=== PATIENT | female | born 1955 | race Two or more races ===

== ENCOUNTER → 2018-07-02 | Day surgery (SDC) | payer OTHER ==
[2018-07-01 15:08] LABS: ANION GAP 17.6 mmol/L (8-16); BLOOD UREA NITROGEN 20 mg/dL (7-26); BUN/CREATININE RATIO 25 (6-25); CALCIUM 10.4 mg/dL (8.4-10.2); CARBON DIOXIDE 23 mmol/L (22-29); CHLORIDE 102 mmol/L (98-107); CREATININE, SERUM 0.79 mg/dL (0.57-1.11); EST GLOMERULAR FILTRATION RATE > 60 ML/MIN (60-); GLUCOSE 87 mg/dL (74-118); POTASSIUM 3.6 mmol/L (3.5-5.1); SODIUM 139 mmol/L (136-145)
[~2018-07-02] MED LIST: ACETAMINOPHEN-1 EAC3; CEFTRIAXONE SOD 1 GM VIAL ONE; CIPRO500 MG PO; DEXAMETHASONE SOD PHOS INJ 4 MG/ML VIAL ONE; FENTANYL CITRATE/PF 100MCG/2 ML INJ ONE; IOPAMIDOL 610MG/1ML 300 MG/ML VIAL IV ONE; LIDOCAINE HCL 2% LOCAL INJ 5 ML SDV VIAL INJ ONE; LISINOPRIL-HCT1 EAC1; MIDAZOLAM HCL 2 MG/2 ML VIAL ONE; ONDANSETRON HCL INJ 2 MG/ML VIAL ONE; PROPOFOL IV EMULSION 10 MG/ML 20 ML VIAL ONE; SEVOFLURANE INHAL SOLN 250 ML PEN BTL ONE; ZESTORETIC 10-1 EAC1
--- OUTSIDE RECORDS SUMMARY | 2018-07-02 05:14 | XMS REPORT ---
Author Author Denzel Holcomb Organization [employer] Address Unknown Phone Unavailable Care Team Providers Care Banquet Captain Name Role Phone Denzel Holcomb CP Unavailable Allergies, Adverse Reactions, Alerts Substance Reaction Event Type penicillin Info Not Available Drug Allergy Problems Problem Type Condition Code Onset Dates Condition Status Assessment Chronic allergic rhinitis, unspecified seasonality, unspecified trigger J30.9 Active Assessment Helicobacter pylori (H. pylori) A04.8 Active Problem Chronic allergic rhinitis, unspecified seasonality, unspecified trigger J30.9 Active Problem Abdominal aortic aneurysm without rupture I71.4 Active Problem PUD (peptic ulcer disease) K27.9 Active Assessment Essential (primary) hypertension I10 Active Assessment UGI bleed K92.2 Active Problem Essential (primary) hypertension I10 Active Assessment PUD (peptic ulcer disease) K27.9 Active Medications Medication Code System Code Instructions Start Date End Date Status Dosage Hemocyte [facility] [address]-55 324 (106 Fe) MG Orally daily Active 1 capsule Caltrate 600+D [facility] [address]-98 600-800 MG-UNIT Orally twice a day (bid) Apr 17, 2017 Oct 14, 2017 Active 1 tablet with a meal Flonase ND 0 50 MCG/DOSE Nasally Once a day Jun 26, 2017 Active 1 spray in each nostril Prevpac [facility] [address]-11 - Orally as directed Jun 26, 2017 Active as directed Claritin [facility] [address]-76 10 MG Orally Once a day Jun 26, 2017 Jul 26, 2017 Active 1 tablet Lisinopril-Hydrochlorothiazide [facility] [address]-17 10-12.5 MG Orally Once a day February 10, 2017 Active 1 tablet Vital Signs Date/Time: Jun 26, 2017 BMI 23.36 Index Weight 119.6 lbs Height 60.0 in Temperature 98.3 F Cardiac Monitoring Heart Rate 76 /min Blood Pressure Diastolic 109 mm Hg Blood Pressure Systolic 190 mm Hg Results Name Result Date Reference Range Unit Abnormality Flag COMPREHENSIVE METABOLIC PANEL ----ALBUMIN/GLOBULIN RATIO 1.1 [id number] 1.0-2.5 (calc) N ----GLOBULIN 3.6 [id number] 1.9-3.7 g/dL (calc) N ----ALKALINE PHOSPHATASE 86 [id number] 33-130 U/L N ----BILIRUBIN, TOTAL 0.3 [id number] 0.2-1.2 mg/dL N ----CHLORIDE 106 17702204 98-110 mmol/L N ----ALT 14 [id number] 6-29 U/L N ----POTASSIUM 4.5 [id number] 3.5-5.3 mmol/L N ----AST 19 [id number] 10-35 U/L N ----SODIUM 141 27890984 135-146 mmol/L N ----BUN/CREATININE RATIO NOT APPLICABLE [id number] 6-22 (calc) ----eGFR 94 [id number] > OR=60 mL/min/1.73m2 N ----CALCIUM 9.5 [id number] 8.6-10.4 mg/dL N ----CARBON DIOXIDE 27 [id number] 20-31 mmol/L N ----ALBUMIN 3.8 [id number] 3.6-5.1 g/dL N ----PROTEIN, TOTAL 7.4 [id number] 6.1-8.1 g/dL N ----GLUCOSE 89 [id number] 65-99 mg/dL N ----UREA NITROGEN (BUN) 19 [id number] 7-25 mg/dL N ----CREATININE 0.78 [id number] 0.50-0.99 mg/dL N ----eGFR NON-AFR. AZERBAIJANI 81 [id number] > OR=60 mL/min/1.73m2 N Summary Purpose [employer] Submission
--- OUTSIDE RECORDS SUMMARY | 2018-07-02 05:14 | XMS REPORT ---
Author Author Denzel Holcomb Organization [employer] Address Unknown Phone Unavailable Care Team Providers Care Scoreboard Operator Name Role Phone Denzel Holcomb CP Unavailable Allergies No Known Allergies Problems Problem Type Condition Code Onset Dates Condition Status Problem Chronic allergic rhinitis, unspecified seasonality, unspecified trigger J30.9 Active Problem Abdominal aortic aneurysm without rupture I71.4 Active Problem PUD (peptic ulcer disease) K27.9 Active Problem Essential (primary) hypertension I10 Active Assessment PUD (peptic ulcer disease) K27.9 Active Medications Medication Code System Code Instructions Start Date End Date Status Dosage Prevacid [facility] [address]-96 30 MG Orally twice a day (bid) Jun 30, 2017 Active 1 capsule Amoxicillin [facility] [address]-92 500 MG Orally every 12 hrs Jun 30, 2017 Jul 15, 2017 Active 2 tablets Prevpac [facility] [address]-44 - Orally as directed Jun 26, 2017 Inactive as directed Biaxin [facility] [address]-66 500 MG Orally every 12 hrs Jun 30, 2017 Jul 15, 2017 Active 1 tablet Results No Known Results Summary Purpose [employer] Submission
--- OUTSIDE RECORDS SUMMARY | 2018-07-02 05:14 | XMS REPORT ---
Author Author Denzel Holcomb Organization [employer] Address Unknown Phone Unavailable Care Team Providers Care Glass Frame Fitter Name Role Phone Denzel Holcomb CP Unavailable Allergies, Adverse Reactions, Alerts Substance Reaction Event Type penicillin Info Not Available Drug Allergy Problems Problem Type Condition Code Onset Dates Condition Status Assessment Encounter for general adult medical examination with abnormal findings Z00.01 Active Assessment Essential (primary) hypertension I10 Active Problem Essential (primary) hypertension I10 Active Assessment Body mass index (BMI) of 23.0 to 23.9 in adult Z68.23 Active Medications Medication Code System Code Instructions Start Date End Date Status Dosage Lisinopril-Hydrochlorothiazide [facility] [address]-62 10-12.5 MG Orally Once a day February 10, 2017 Active 1 tablet Vital Signs Date/Time: February 10, 2017 BMI 23.57 Index Weight 120.7 lbs Height 60.0 in Temperature 98.0 F Cardiac Monitoring Heart Rate 80 /min Blood Pressure Diastolic 94 mm Hg Blood Pressure Systolic 169 mm Hg Results No Known Results Summary Purpose [employer] Submission
--- OUTSIDE RECORDS SUMMARY | 2018-07-02 05:14 | XMS REPORT ---
Author Author Denzel Holcomb Organization [employer] Address Unknown Phone Unavailable Care Team Providers Care General Machinist Name Role Phone Denzel Holcomb CP Unavailable Allergies No Known Allergies Problems Problem Type Condition Code Onset Dates Condition Status Problem Essential (primary) hypertension I10 Active Problem Abdominal aortic aneurysm without rupture I71.4 Active Medications Medication Code System Code Instructions Start Date End Date Status Dosage Caltrate 600+D [facility] [address]-07 600-800 MG-UNIT Orally twice a day (bid) Apr 17, 2017 Oct 14, 2017 Active 1 tablet with a meal Results No Known Results Summary Purpose [employer] Submission
--- OUTSIDE RECORDS SUMMARY | 2018-07-02 05:14 | XMS REPORT | Continuity of Care Document ---
Author Author [facility] Interface Address Unknown Phone Unavailable Problems Problem Status Onset Date Classification Date Reported Comments Source Escherichia coli<sup>1, 2</sup> Active 06/14/2017 Problem 06/19/2017 Problem added by Discern Expert. [facility] EPIGASTRIC ABDOMINAL PIAN, ACUTE BLOOD L Active 06/14/2017 [facility] DIFFICULTY BREATHING Active 06/14/2017 [facility] Chronic allergic rhinitis, unspecified seasonality, unspecified trigger Active Diagnosis 05/29/2018 [id number] Abdominal aortic aneurysm without rupture Active Problem 05/29/2018 [id number] PUD Active Problem 05/29/2018 [id number] Essential hypertension Active Problem 05/29/2018 [id number],Jonathan Vazquez Encounter for general adult medical examination with abnormal findings Active Diagnosis 02/17/2017 [id number] Body mass index of 23.0 to 23.9 in adult Active Diagnosis 02/17/2017 [id number] Acute left-sided low back pain with left-sided sciatica Active Problem 05/29/2018 [id number] Hypertensive urgency Active Problem 05/29/2018 [id number] Kidney stone Active Diagnosis 05/29/2018 [id number] Hydronephrosis concurrent with and due to calculi of kidney and ureter Active Diagnosis 05/29/2018 [id number] Helicobacter pylori Active Diagnosis 07/08/2017 [id number] UGI bleed Active Diagnosis 07/08/2017 [id number] Carpal tunnel syndrome, left Active Problem 10/14/2016 Jonathan Vazquez Body mass index 22.0-22.9, adult Active Diagnosis 10/14/2016 Jonathan Vazquez Cervicalgia Active Diagnosis 10/14/2016 Jonathan Vazquez Hypertension Resolved Problem 06/19/2017 [facility] Peptic ulcer Resolved Problem 06/19/2017 [facility] EPIGASTRIC PAIN Active [facility] ACUTE POSTHEMORRHAGIC ANEMIA Active [facility] Medications Medication Details Route Status Patient Instructions Ordering Provider Order Date Source Lisinopril-Hydrochlorothiazide 1 tablet Orally Active 20-25 MG Orally Once a day Zhang 01/13/2018 [id number] Kcinntc-Agfdtv-Wzzfs Pertussis as directed Intramuscular Active 5-2.5-18.5 LF-MCG/0.5 Intramuscular as directed Zhang 01/13/2018 [id number] Tylenol/Codeine #3 1 tablet as needed Orally Active 300-30 MG Orally every 6 hrs Zhang 12/30/2017 [id number] Cipro 1 tablet Orally Active 500 mg Orally Once a day Zhang 12/30/2017 [id number] Prevacid 1 capsule Orally Active 30 MG Orally twice a day (bid) Zhang 06/30/2017 [id number] Amoxicillin 2 tablets Orally Active 500 MG Orally every 12 hrs Zhang 06/30/2017 [id number] Biaxin 1 tablet Orally Active 500 MG Orally every 12 hrs Zhang 06/30/2017 [id number] Prevacid 1 capsule Orally Active 30 MG Orally twice a day (bid) Zhang 06/30/2017 [id number]..77491 Prevpac as directed Orally Active - Orally as directed Zhang 06/26/2017 [id number] Flonase 1 spray in each nostril Nasally Active 50 MCG/DOSE Nasally Once a day Zhang 06/26/2017 [id number] Flonase 1 spray in each nostril Nasally Active 50 MCG/DOSE Nasally Once a day Zhang 06/26/2017 [id number] Claritin 1 tablet Orally Active 10 MG Orally Once a day Zhang 06/26/2017 [id number] Ciprofloxacin 500 MG Oral Tablet [Cipro] 500 mg=1 tab, PO, Q12H, X 10 day, # 20 tab, 0 Refill(s), Pharmacy: [place] [facility] [id number] Active 06/16/2017 [facility] Copper Sulfate 0.8 MG / Ferrous fumarate 324 MG / Folic Acid 1 MG / Magnesium Sulfate 6.9 MG / manganese sulfate 1.3 MG / Niacinamide 30 MG / Pantothenic Acid 10 MG / pyridoxine 5 MG / Riboflavin 6 MG / Sodium Ascorbate 200 MG / Thiamine 10 MG / Vitamin B 1 cap, PO, Daily, # 30 cap, 3 Refill(s), Pharmacy: [place] [id number] Active 06/16/2017 [facility] influenza virus vaccine, inactivated 0.5 mL, Route: IM, Drug Form: SUSP, Daily, Start date: 06/15/17 16:00:00 CDT, Duration: 1 doses or times, Stop date: 06/15/17 16:00:00 CDTNotes: (Same as: Fluzone Quadrivalent, Fluarix Quadrivalent) For 3 years of age and older (0.5 mL IM) Shake well before use Inactive 06/15/2017 [facility] Sucralfate 1000 MG Oral Tablet [Carafate] 1 gm=1 tab, PO, QID-Before Meals, # 120 tab, 0 Refill(s), Pharmacy: [place] [id number] Active 06/15/2017 [facility] pantoprazole 40 MG Enteric Coated Tablet [Protonix] 40 mg=1 tab, PO, BID, # 120 tab, 1 Refill(s), Pharmacy: [place] [id number] Active 06/15/2017 [facility] Omnipaque 300 50 ml, Route: PO, Drug Form: SOLN, Dosing Weight 55.483, kg, ONCE, Start date: 06/15/17 11:41:00 CDT, Stop date: 06/15/17 11:41:00 CDTNotes: (Same as:Omnipaque 300). WASTE: F/P - Black; E - sougou Bin Inactive 06/15/2017 [facility] Levaquin 500 mg, 2 tab, Route: PO, Drug form: TAB, [id number], Dosing Weight 55.483, kg, Start date: 06/15/17 11:00:00 CDT, Duration: 3 day, Stop date: 06/17/17 11:00:00 CDT, ABX Indication: Urinary Tract InfectionNotes: Do not give w/antacids, dairy pdt & minerals Take 1 hr before or 2 hr after dairy pdt (Same as:Levaquin) No Longer Active 06/15/2017 [facility] Sodium Chloride 0.9% IV 1000 mL 1,000 mL, Rate: 25 ml/hr, Infuse over: 40 hr, Route: IV, Dosing Weight 55.483 kg, Total Volume: 1,000, Start date: 06/15/17 10:04:00 CDT, Duration: 30 day, Stop date: 07/15/17 10:03:00 CDT Inactive 06/15/2017 [facility] influenza virus vaccine, inactivated 0.5 mL, Route: IM, Drug Form: SUSP, Daily, Start date: 06/15/17 9:00:00 CDT, Duration: 1 doses or times, Stop date: 06/15/17 9:00:00 CDTNotes: (Same as: Fluzone Quadrivalent, Fluarix Quadrivalent) For 3 years of age and older (0.5 mL IM) Shake well before use Inactive 06/15/2017 [facility] Saline Flush 0.9% 10 ml, Route: IVP, Drug Form: INJ, Dosing Weight 56.818, kg, PRN, PRN Line Flush, Start date: 06/14/17 20:58:00 CDT, Duration: 30 day, Stop date: 07/14/17 20:57:00 CDTNotes: (Same as: BD Posiflush) No Longer Active 06/15/2017 [facility] sodium chloride 0.9% 1000 ml INJ 1,000 mL 1,000 mL, Rate: 125 ml/hr, Infuse over: 8 hr, Route: IV, Dosing Weight 56.818 kg, Total Volume: 1,000, Start date: 06/14/17 20:58:00 CDT, Duration: 30 day, Stop date: 07/14/17 20:57:00 CDT No Longer Active 06/15/2017 [facility] Morphine 2 mg, 1 mL, Route: IVP, Drug form: SOLN, Q4H, Dosing Weight 56.818, kg, PRN Pain Score 7-10, Start date: 06/14/17 20:58:00 CDT, Duration: 30 day, Stop date: 07/14/17 20:57:00 CDT No Longer Active 06/15/2017 [facility] Ondansetron 4 mg, 2 mL, Route: IVP, Drug form: INJ, Q6H, Dosing Weight 56.818, kg, PRN Nausea & Vomiting, Start date: 06/14/17 20:58:00 CDT, Duration: 30 day, Stop date: 07/14/17 20:57:00 CDTNotes: (Same as: Zofran) MEDICATION WASTE Product Size: 4 mg Product Wasted: ___ mg No Longer Active 06/15/2017 [facility] Hydralazine 10 mg, 0.5 mL, Route: IVP, Drug form: INJ, Q4H, Dosing Weight 56.818, kg, PRN Elevated BP, if SBP>150, Start date: 06/14/17 19:16:00 CDT, Duration: 30 day, Stop date: 07/14/17 19:15:00 CDTNotes: (Same as: Apresoline) Push over 5 minutes No Longer Active 06/15/2017 [facility] Benadryl 25 mg, 0.5 mL, Route: IVP, Drug form: INJ, TID, Dosing Weight 56.818, kg, PRN as needed for itching, Start date: 06/14/17 19:16:00 CDT, Duration: 30 day, Stop date: 07/14/17 19:15:00 CDTNotes: (Same as: Benadryl) No Longer Active 06/15/2017 [facility] Simethicone 160 mg, 2 tab, Route: CHEW, Drug form: CHEWTAB, TID, Dosing Weight 56.818, kg, PRN as needed for gas, Start date: 06/14/17 19:16:00 CDT, Duration: 30 day, Stop date: 07/14/17 19:15:00 CDTNotes: (Same as: Mylicon) No Longer Active 06/15/2017 [facility] Tums 1,500 mg, 3 tab, Route: CHEW, Drug form: CHEWTAB, TID, Dosing Weight 56.818, kg, PRN as needed for dyspepsia, Start date: 06/14/17 19:16:00 CDT, Duration: 30 day, Stop date: 07/14/17 19:15:00 CDTNotes: (Same As: Tums) Calcium Carbonate 500 wq=851 mg elemental calcium Dose= mg calcium carbonate ( mg elemental calcium) No Longer Active 06/15/2017 [facility] Morphine 2 mg, 1 mL, Route: IVP, Drug form: SOLN, Q4H, Dosing Weight 56.818, kg, PRN Pain Score 7-10, Start date: 06/14/17 19:16:00 CDT, Duration: 30 day, Stop date: 07/14/17 19:15:00 CDT Inactive 06/15/2017 [facility] Ondansetron 4 mg, 2 mL, Route: IVP, Drug form: INJ, Q6H, Dosing Weight 56.818, kg, PRN Nausea & Vomiting, Start date: 06/14/17 19:16:00 CDT, Duration: 30 day, Stop date: 07/14/17 19:15:00 CDTNotes: (Same as: Luis Antonio) MEDICATION WASTE Product Size: 4 mg Product Wasted: ___ mg Inactive 06/15/2017 [facility] Docusate 100 mg, 1 cap, Route: PO, Drug form: CAP, BID, Dosing Weight 56.818, kg, PRN as needed for constipation, Start date: 06/14/17 19:16:00 CDT, Duration: 30 day, Stop date: 07/14/17 19:15:00 CDTNotes: (Same as: Colace) (Do Not Crush) No Longer Active 06/15/2017 [facility] Acetaminophen 650 mg, 2 tab, Route: PO, Drug form: TAB, Q4H, Dosing Weight 56.818, kg, PRN Pain 1-3/Temp > 100.4 F, Start date: 06/14/17 19:16:00 CDT, Duration: 30 day, Stop date: 07/14/17 19:15:00 CDTNotes: Do not exceed 4 gm/day. (Same as: Tylenol) No Longer Active 06/15/2017 [facility] Acetaminophen 325 MG / Hydrocodone Bitartrate 5 MG Oral Tablet 1 tab, Route: PO, Drug Form: TAB, Dosing Weight 56.818, kg, Q4H, PRN Pain Score 4-6, Start date: 06/14/17 19:16:00 CDT, Duration: 30 day, Stop date: 07/14/17 19:15:00 CDTNotes: (Same as: [place] 325/5) Do not exceed 4gm/day of acetaminophen. No Longer Active 06/15/2017 [facility] Saline Flush 0.9% 10 ml, Route: IVP, Drug Form: INJ, Dosing Weight 56.818, kg, PRN, PRN Line Flush, Start date: 06/14/17 19:15:00 CDT, Duration: 30 day, Stop date: 07/14/17 19:14:00 CDTNotes: (Same as: BD Posiflush) No Longer Active 06/15/2017 [facility] sodium chloride 0.9% 1000 ml INJ 1,000 mL 1,000 mL, Rate: 75 ml/hr, Infuse over: 13.3 hr, Route: IV, Dosing Weight 56.818 kg, Total Volume: 1,000, Start date: 06/14/17 19:15:00 CDT, Duration: 30 day, Stop date: 07/14/17 19:14:00 CDT Inactive 06/15/2017 [facility] Ondansetron 4 mg, 2 mL, Route: IVP, Drug form: INJ, Q4H, Dosing Weight 56.818, kg, PRN Nausea & Vomiting, Start date: 06/14/17 19:15:00 CDT, Duration: 30 day, Stop date: 07/14/17 19:14:00 CDTNotes: (Same as: Luis Antonio) MEDICATION WASTE Product Size: 4 mg Product Wasted: ___ mg Inactive 06/15/2017 [facility] UNKNOWN BP UNKNOWN BP, 30 mg=, PO, Daily, PRN Hypertension, Refill(s) 0 No Longer Active 06/14/2017 [facility] Esomeprazole 20 MG Enteric Coated Capsule [Nexium] 20 mg=1 cap, PO, Daily, 0 Refill(s) No Longer Active 06/14/2017 [facility] pantoprazole 80 mg + sodium chloride 0.9% 100 mL INJ (for IV set) 100 mL 100 mL, Rate: 10 ml/hr, Infuse over: 10 hr, Route: IV, Dosing Weight 56.818 kg, Total Volume: 100, Start date: 06/14/17 17:43:00 CDT, Duration: 72 hr, Stop date: 06/23/17 17:42:00 CDTNotes: infuse at 8 mg/hr (10 ml/hr) for 72 hrs for GI bleed No Longer Active 06/14/2017 [facility] Sodium Chloride 0.9% IV 250 mL + esomeprazole 80 mg 250 mL, Rate: 25 ml/hr, Infuse over: 10 hr, Route: IV, Dosing Weight 56.818 kg, Total Volume: 250, Start date: 06/14/17 17:35:00 CDT, Duration: 72 hr, Stop date: 06/17/17 17:34:00 CDT Inactive 06/14/2017 [facility] sodium chloride 0.9% INJ 250 mL 250 mL, Rate: Armature Winder for use with blood product administration., Dosing Weight 56.818, kg, Route: IV, Total Volume: 250, Priority: Routine, Start Date: 06/14/17 17:26:00 CDT, Duration: 1 day, Stop date: 06/15/17 17:25:00 CDT, Replace Every: 24 hr No Longer Active 06/14/2017 [facility] sodium chloride 0.9% INJ 250 mL 250 mL, Rate: Armature Winder for use with blood product administration., Dosing Weight 56.818, kg, Route: IV, Total Volume: 250, Priority: Routine, Start Date: 06/14/17 16:19:00 CDT, Duration: 1 day, Stop date: 06/15/17 16:18:00 CDT, Replace Every: 24 hr No Longer Active 06/14/2017 [facility] Saline Flush 0.9% 10 mL, Route: IVP, Drug Form: INJ, Dosing Weight 56.818, kg, PRN, PRN Line Flush, Start date: 06/14/17 16:19:00 CDT, Duration: 30 day, Stop date: 07/14/17 16:18:00 CDTNotes: preservative free. No Longer Active 06/14/2017 [facility] Caltrate 600+D 1 tablet with a meal Orally Active 600-800 MG- UNIT Orally twice a day (bid) Zhang 04/17/2017 [id number] Lisinopril-Hydrochlorothiazide 1 tablet Orally Active 10-12.5 MG Orally Once a day Zhang 02/10/2017 [id number] Lisinopril-Hydrochlorothiazide 1 tablet Orally Active 10-12.5 MG Orally Once a day Zhang 02/10/2017 [id number] Meloxicam 1 tablet Orally Active 7.5 MG Orally Once a day [facility] 10/08/2016 [facility] Losartan Potassium-HCTZ 1 tablet Orally Active 100-12.5 MG Orally Once a day [facility] 10/08/2016 [facility] Hemocyte 1 capsule Orally Active 324 (106 Fe) MG Orally daily Zhang [id number] Hemocyte 1 capsule Orally Active 324 (106 Fe) MG Orally daily Zhang [id number] Allergies, Adverse Reactions, Alerts Substance Category Reaction Severity Reaction type Status Date Reported Comments Source Peniciline Adverse Reaction rash Adverse Reaction Active 10/08/2016 Jonathan Vazquez penicillin Adverse Reaction Info Not Available Adverse Reaction Active 05/14/2018 [id number] Immunizations Immunization Date Given Site Status Last Updated Comments Source influenza virus vaccine, inactivated 06/15/2017 Left deltoid completed [facility] Results Order Name Results Value Reference Range Date Interpretation Comments Source HEMATOLOGY MCHC 33.2 g/dL 32.0 - 36.0 06/16/2017 [facility] HEMATOLOGY MPV 7.3 fL 7.4 - 10.4 06/16/2017 [facility] HEMATOLOGY MCV 75.9 fL 80.0 - 98.0 06/16/2017 [facility] HEMATOLOGY Hgb 8.6 g/dL 12.0 - 16.0 06/16/2017 [facility] HEMATOLOGY RBC 3.43 M/CMM 4.20 - 5.40 06/16/2017 [facility] HEMATOLOGY Platelet 219 K/CMM 133 - 450 06/16/2017 [facility] HEMATOLOGY RDW 20.9 % 11.5 - 14.5 06/16/2017 [facility] Hct 26.0 % 36.0 - 48.0 06/16/2017 [facility] MCH 25.2 pg 27.0 - 31.0 06/16/2017 [facility] WBC 7.4 K/CMM 3.7 - 10.4 06/16/2017 [facility] BLOOD BANK RESULTS RBC product Product available 1 (06/16/17 7:37 AM) 06/16/2017 Result Comment: 06/16/2017 07:57 [id number] notified FLY philip blood is ready for filler picker [facility] CHEM PANEL BUN 20 mg/dL 7 - 22 06/16/2017 [facility] CHEM PANEL Sodium Lvl 144 meq/L 135 - 145 06/16/2017 [facility] CHEM PANEL Creatinine Lvl 0.63 mg/dL 0.50 - 1.40 06/16/2017 [facility] CHEM PANEL Glucose Lvl 87 mg/dL 70 - 99 06/16/2017 [facility] CHEM PANEL AGAP 9.8 meq/L 10.0 - 20.0 06/16/2017 [facility] CHEM PANEL CO2 26 meq/L 24 - 32 06/16/2017 [facility] CHEM PANEL Calcium Lvl 7.8 mg/dL 8.5 - 10.5 06/16/2017 [facility] CHEM PANEL Chloride Lvl 112 meq/L 95 - 109 06/16/2017 [facility] CHEM PANEL Potassium Lvl 3.8 meq/L 3.5 - 5.1 06/16/2017 [facility] CHEM PANEL eGFR 96 mL/min/1.73m2 06/16/2017 Result Comment: The eGFR is calculated using the CKD-EPI formula. In most young, healthy individuals the eGFR will be >90 mL/min/1.73m2. The eGFR declines with age. An eGFR of 60-89 may be normal in some populations, particularly the elderly, for whom the CKD-EPI formula has not been extensively validated. Use of the eGFR is not recommended in the following populations: Individuals with unstable creatinine concentrations, including patients and those with serious co-morbid conditions. Patients with extremes in muscle mass or diet. The data above are obtained from the National Kidney Disease Education Program (NKDEP) which additionally recommends that when the eGFR is used in patients with extremes of body mass index for purposes of drug dosing, the eGFR should be multiplied by the estimated BMI. [facility] Platelet 210 K/CMM 133 - 450 06/16/2017 [facility] MPV 7.6 fL 7.4 - 10.4 06/16/2017 [facility] MCHC 32.4 g/dL 32.0 - 36.0 06/16/2017 [facility] RDW 21.2 % 11.5 - 14.5 06/16/2017 [facility] MCH 23.9 pg 27.0 - 31.0 06/16/2017 [facility] MCV 73.9 fL 80.0 - 98.0 06/16/2017 [facility] WBC 7.3 K/CMM 3.7 - 10.4 06/16/2017 [facility] RBC 3.04 M/CMM 4.20 - 5.40 06/16/2017 [facility] Hct 22.4 % 36.0 - 48.0 06/16/2017 [facility] Hgb 7.3 g/dL 12.0 - 16.0 06/16/2017 [facility] Eosinophils 3.3 % 0.0 - 4.0 06/16/2017 [facility] Basophils 0.6 % 0.0 - 1.0 06/16/2017 [facility] Segs-Bands # 3.9 K/CMM 1.5 - 8.1 06/16/2017 [facility] Lymphocytes # 2.5 K/CMM 1.0 - 5.5 06/16/2017 [facility] Monocytes # 0.6 K/CMM 0.0 - 0.8 06/16/2017 [facility] Microcyte 1+ *ABN* (06/16/17 5:50 AM) None Seen 06/16/2017 [facility] Eosinophils # 0.2 K/CMM 0.0 - 0.5 06/16/2017 [facility] Segs 54.0 % 45.0 - 75.0 06/16/2017 [facility] Lymphocytes 34.2 % 20.0 - 40.0 06/16/2017 [facility] Monocytes 7.9 % 2.0 - 12.0 06/16/2017 [facility] Hct 24.3 % 36.0 - 48.0 06/15/2017 [facility] Hgb 7.9 g/dL 12.0 - 16.0 06/15/2017 [facility] URINE AND STOOL Occult Bld Stl Positive *ABN* (06/15/17 10:01 AM) Negative 06/15/2017 [facility] Abdomen/Pelvis wo IV contrast CT Abdomen/Pelvis wo IV contrast CT Patient Name: VADIM ALVES : 1955; Age: 61 years Female MR: [id number] Study: Abdomen/Pelvis wo IV contrast CT 06/15/2017 10:46 AM CDT CLINICAL INDICATION: 25cc omni oral; dlp:272 mGycm - abd pain; Abdominal pain, acute COMPARISON: None TECHNIQUE: Multidetector CT imaging of the abdomen and pelvis was performed from the diaphragm through the symphysis with multiplanar reformations WITHOUT IV contrast. Coronal and sagittal reconstructions were generated and reviewed. FINDINGS: Lower thorax: Clear. Hepatobiliary: No focal hepatic lesion. Unremarkable gallbladder. Pancreas: No focal mass or ductal dilatation. Spleen: No splenomegaly. Adrenals: No nodules. Kidneys: Large staghorn calculus (2.3 cm) centered within the left renal pelvis results in mild left hydronephrosis. Several additional nonobstructive calculi within both kidneys. The proximal left ureter is dilated with surrounding inflammatory changes. No evidence of a distal left ureteral stone. Pelvic organs: Absent uterus. Nondistended bladder. Peritoneum/Retroperitoneum: No free air or free fluid. Lymph nodes: No lymphadenopathy. Vessels: Unremarkable. GI: No significant bowel thickening or dilatation. The appendix appears unremarkable. Bones and soft tissues: Mild degenerative changes of the lumbar spine. IMPRESSION: Large staghorn calculus within the left renal pelvis results in mild left hydronephrosis. Dilatation of the proximal left ureter with surrounding inflammatory changes suggestive of a concurrent urinary tract infection. No evidence of an obstructive ureteral stone. Several additional nonobstructive calculi within both kidneys. SL: [id number] 06/15/2017 - - Read by: Rick Dimas MD Dictated Date/time: 06/15/17 16:07 Electronically Signed by: Rick Dimas MD 06/15/17 16:20 FINAL REPORT [facility] CHEM PANEL Calcium Lvl 8.0 mg/dL 8.5 - 10.5 06/15/2017 [facility] CHEM PANEL Total Protein 5.6 g/dL 6.4 - 8.4 06/15/2017 [facility] CHEM PANEL B/C Ratio 55 6 - 25 06/15/2017 [facility] CHEM PANEL CO2 22 meq/L 24 - 32 06/15/2017 [facility] CHEM PANEL AGAP 11.6 meq/L 10.0 - 20.0 06/15/2017 [facility] CHEM PANEL Albumin Lvl 2.5 g/dL 3.5 - 5.0 06/15/2017 [facility] CHEM PANEL Creatinine Lvl 0.58 mg/dL 0.50 - 1.40 06/15/2017 [facility] CHEM PANEL Sodium Lvl 145 meq/L 135 - 145 06/15/2017 [facility] CHEM PANEL Potassium Lvl 3.6 meq/L 3.5 - 5.1 06/15/2017 [facility] CHEM PANEL Chloride Lvl 115 meq/L 95 - 109 06/15/2017 [facility] CHEM PANEL Alk Phos 65 unit/L 39 - 136 06/15/2017 [facility] CHEM PANEL Bili Total 0.7 mg/dL 0.2 - 1.3 06/15/2017 [facility] CHEM PANEL Globulin 3.1 g/dL 2.7 - 4.2 06/15/2017 [facility] CHEM PANEL A/G Ratio 0.8 0.7 - 1.6 06/15/2017 [facility] CHEM PANEL ALT 16 unit/L 0 - 65 06/15/2017 [facility] CHEM PANEL AST 16 unit/L 0 - 37 06/15/2017 [facility] CHEM PANEL eGFR 99 mL/min/1.73m2 06/15/2017 Result Comment: The eGFR is calculated using the CKD-EPI formula. In most young, healthy individuals the eGFR will be >90 mL/min/1.73m2. The eGFR declines with age. An eGFR of 60-89 may be normal in some populations, particularly the elderly, for whom the CKD-EPI formula has not been extensively validated. Use of the eGFR is not recommended in the following populations: Individuals with unstable creatinine concentrations, including patients and those with serious co-morbid conditions. Patients with extremes in muscle mass or diet. The data above are obtained from the National Kidney Disease Education Program (NKDEP) which additionally recommends that when the eGFR is used in patients with extremes of body mass index for purposes of drug dosing, the eGFR should be multiplied by the estimated BMI. [facility] CHEM PANEL Glucose Lvl 90 mg/dL 70 - 99 06/15/2017 [facility] CHEM PANEL BUN 32 mg/dL 7 - 22 06/15/2017 [facility] CHEM PANEL Magnesium Lvl 2.0 mg/dL 1.8 - 2.4 06/15/2017 [facility] CHEM PANEL Phosphorus 2.5 mg/dL 2.5 - 4.5 06/15/2017 [facility] Microcyte 1+ *ABN* (06/15/17 6:47 AM) None Seen 06/15/2017 [facility] Segs-Bands # 3.9 K/CMM 1.5 - 8.1 06/15/2017 [facility] Lymphocytes # 2.6 K/CMM 1.0 - 5.5 06/15/2017 [facility] HEMATOLOGY Monocytes 7.6 % 2.0 - 12.0 06/15/2017 [facility] HEMATOLOGY Basophils 0.5 % 0.0 - 1.0 06/15/2017 [facility] HEMATOLOGY Eosinophils 1.8 % 0.0 - 4.0 06/15/2017 [facility] Lymphocytes 35.9 % 20.0 - 40.0 06/15/2017 [facility] Eosinophils # 0.1 K/CMM 0.0 - 0.5 06/15/2017 [facility] Monocytes # 0.5 K/CMM 0.0 - 0.8 06/15/2017 [facility] HEMATOLOGY Segs 54.2 % 45.0 - 75.0 06/15/2017 [facility] HEMATOLOGY MPV 7.6 fL 7.4 - 10.4 06/15/2017 [facility] HEMATOLOGY RDW 20.8 % 11.5 - 14.5 06/15/2017 [facility] HEMATOLOGY MCHC 32.9 g/dL 32.0 - 36.0 06/15/2017 [facility] HEMATOLOGY MCH 24.4 pg 27.0 - 31.0 06/15/2017 [facility] HEMATOLOGY MCV 74.3 fL 80.0 - 98.0 06/15/2017 [facility] HEMATOLOGY Platelet 188 K/CMM 133 - 450 06/15/2017 [facility] HEMATOLOGY RBC 3.20 M/CMM 4.20 - 5.40 06/15/2017 [facility] HEMATOLOGY WBC 7.2 K/CMM 3.7 - 10.4 06/15/2017 [facility] Sq Epi None Seen 06/15/2017 [facility] Leuk Est Large *ABN* (06/14/17 11:13 PM) Negative 06/15/2017 [facility] Hyal Cast 1 /LPF 0 - 2 06/15/2017 [facility] RBC 5 /HPF 0 - 2 06/15/2017 [facility] WBC null 0 - 5 06/15/2017 [facility] Bacteria Many /HPF None Seen /HPF 06/15/2017 [facility] UA Urobilinogen <=1.0 mg/dL 0.1 - 1.0 06/15/2017 [facility] UA Color Ltyellow 06/15/2017 [facility]A Bili Negative *NA* (06/14/17 11:13 PM) Negative 06/15/2017 [facility] UA Nitrite Negative (06/14/17 11:13 PM) Negative 06/15/2017 [facility] UA Blood Negative (06/14/17 11:13 PM) Negative 06/15/2017 [facility] STO[facility] UA Turbidity Slight *ABN* (06/14/17 11:13 PM) Clear 06/15/2017 [facility]INE [facility] STOOL UA Ketones Negative mg/dL Negative mg/dL 06/15/2017 [facility]INE [facility] STOOL UA Glucose Negative mg/dL Negative mg/dL 06/15/2017 [facility] URINE AND STOOL UA Protein Negative mg/dL Negative mg/dL 06/15/2017 [facility] URINE AND STOOL UA pH 6.0 5.0 - 8.0 06/15/2017 [facility] URINE AND STOOL UA Spec Grav 1.013 <=1.030 06/15/2017 [facility] BLOOD BANK RESULTS RBC product Product available 2 (06/14/17 5:26 PM) 06/14/2017 Result Comment: 06/14/2017 18:01 [id number] Called to Parul Nicholas at 06/14/2017 18:01 by Kan Villegas. [facility] BLOOD BANK RESULTS Antibody Scrn Negative (06/14/17 4:49 PM) 06/14/2017 [facility] BLOOD BANK RESULTS ABO/Rh O POS 06/14/2017 [facility] CARDIAC ENZYMES Troponin-I null 0.00 - 0.40 06/14/2017 [facility] CHEM PANEL A/G Ratio 0.8 0.7 - 1.6 06/14/2017 [facility] CHEM PANEL B/C Ratio 54 6 - 25 06/14/2017 [facility] CHEM PANEL Globulin 3.6 g/dL 2.7 - 4.2 06/14/2017 [facility] CHEM PANEL AGAP 12.1 meq/L 10.0 - 20.0 06/14/2017 [facility] CHEM PANEL eGFR 96 mL/min/1.73m2 06/14/2017 Result Comment: The eGFR is calculated using the CKD-EPI formula. In most young, healthy individuals the eGFR will be >90 mL/min/1.73m2. The eGFR declines with age. An eGFR of 60-89 may be normal in some populations, particularly the elderly, for whom the CKD-EPI formula has not been extensively validated. Use of the eGFR is not recommended in the following populations: Individuals with unstable creatinine concentrations, including patients and those with serious co-morbid conditions. Patients with extremes in muscle mass or diet. The data above are obtained from the National Kidney Disease Education Program (NKDEP) which additionally recommends that when the eGFR is used in patients with extremes of body mass index for purposes of drug dosing, the eGFR should be multiplied by the estimated BMI. [facility] CHEM PANEL Bili Total 0.2 mg/dL 0.2 - 1.3 06/14/2017 [facility] CHEM PANEL Alk Phos 80 unit/L 39 - 136 06/14/2017 [facility] CHEM PANEL Albumin Lvl 2.9 g/dL 3.5 - 5.0 06/14/2017 [facility] CHEM PANEL Calcium Lvl 8.3 mg/dL 8.5 - 10.5 06/14/2017 [facility] CHEM PANEL ALT 23 unit/L 0 - 65 06/14/2017 [facility] CHEM PANEL Total Protein 6.5 g/dL 6.4 - 8.4 06/14/2017 [facility] CHEM PANEL AST 19 unit/L 0 - 37 06/14/2017 [facility] CHEM PANEL Chloride Lvl 111 meq/L 95 - 109 06/14/2017 [facility] CHEM PANEL Sodium Lvl 142 meq/L 135 - 145 06/14/2017 [facility] CHEM PANEL CO2 23 meq/L 24 - 32 06/14/2017 [facility] CHEM PANEL Potassium Lvl 4.1 meq/L 3.5 - 5.1 06/14/2017 [facility] CHEM PANEL BUN 34 mg/dL 7 - 22 06/14/2017 [facility] CHEM PANEL Glucose Lvl 102 mg/dL 70 - 99 06/14/2017 [facility] CHEM PANEL Creatinine Lvl 0.63 mg/dL 0.50 - 1.40 06/14/2017 [facility] HEMATOLOGY Plt Morph Normal (06/14/17 4:49 PM) 06/14/2017 [facility] HEMATOLOGY Segs 69.6 % 45.0 - 75.0 06/14/2017 [facility] HEMATOLOGY Microcyte 2+ *ABN* (06/14/17 4:49 PM) None Seen 06/14/2017 [facility] HEMATOLOGY Basophils # 0.1 K/CMM 0.0 - 0.2 06/14/2017 [facility] HEMATOLOGY Segs-Bands # 6.1 K/CMM 1.5 - 8.1 06/14/2017 [facility] HEMATOLOGY Monocytes # 0.5 K/CMM 0.0 - 0.8 06/14/2017 [facility] HEMATOLOGY Lymphocytes # 2.1 K/CMM 1.0 - 5.5 06/14/2017 [facility] HEMATOLOGY Basophils 0.7 % 0.0 - 1.0 06/14/2017 [facility] HEMATOLOGY Eosinophils 0.5 % 0.0 - 4.0 06/14/2017 [facility] HEMATOLOGY Monocytes 5.5 % 2.0 - 12.0 06/14/2017 [facility] HEMATOLOGY Lymphocytes 23.7 % 20.0 - 40.0 06/14/2017 [facility] HEMATOLOGY PT 12.8 s 12.0 - 14.7 06/14/2017 [facility] HEMATOLOGY INR 0.94 0.85 - 1.17 06/14/2017 [facility] HEMATOLOGY PTT 26.1 s 22.9 - 35.8 06/14/2017 [facility] Vital Signs Vital Sign Value Date Comments Source Weight 123.3 05/14/2018 2.16.840.1.140071.4.391.11.05678 Height 60 05/14/2018 2.16.840.1.808929.4.391.11.35885 Temperature Oral (F) 97.9 F 05/14/2018 2.16.840.1.822775.4.391.11.38509 Heart Rate 75 05/14/2018 2.16.840.1.500911.4.391.11.55156 Diastolic (mm Hg) 75 05/14/2018 2.16.840.1.054601.4.391.11.63643 Systolic (mm Hg) 131 05/14/2018 2.16.840.1.733647.4.391.11.58797 Weight 123.6 01/13/2018 2.16.840.1.306838.4.391.11.55560 Height 60.0 01/13/2018 2.16.840.1.410280.4.391.11.20955 Temperature Oral (F) 98.4 F 01/13/2018 2.16.840.1.101383.4.391.11.60850 Heart Rate 73 01/13/2018 2.16.840.1.027843.4.391.11.74343 Diastolic (mm Hg) 80 01/13/2018 2.16.840.1.985731.4.391.11.77705 Systolic (mm Hg) 145 01/13/2018 2.16.840.1.346973.4.391.11.02294 Weight 123.8 12/30/2017 2.16.840.1.547587.4.391.11.00447 Height 60.0 12/30/2017 2.16.840.1.813152.4.391.11.51529 Temperature Oral (F) 98.4 F 12/30/2017 2.16.840.1.297473.4.391.11.78978 Heart Rate 74 12/30/2017 2.16.840.1.229875.4.391.11.76608 Diastolic (mm Hg) 100 12/30/2017 2.16.840.1.734396.4.391.11.75906 Systolic (mm Hg) 190 12/30/2017 2.16.840.1.573157.4.391.11.86990 Weight 119.6 06/26/2017 2.16.840.1.214704.4.391.11.90139 Height 60.0 06/26/2017 2.16.840.1.603993.4.391.11.89340 Temperature Oral (F) 98.3 F 06/26/2017 2.16.840.1.580370.4.391.11.97961 Heart Rate 76 06/26/2017 2.16.840.1.737885.4.391.11.16099 Diastolic (mm Hg) 109 06/26/2017 2.16.840.1.615483.4.391.11.58661 Systolic (mm Hg) 190 06/26/2017 2.16.840.1.864691.4.391.11.31284 Systolic (mm Hg) 147 06/16/2017 [facility] Diastolic (mm Hg) 82 06/16/2017 [facility] Temperature Oral (F) 98.4 F 06/16/2017 [facility] Heart Rate 83 06/16/2017 [facility] Respitory Rate 16 06/16/2017 [facility] Systolic (mm Hg) 157 06/16/2017 [facility] Diastolic (mm Hg) 87 06/16/2017 [facility] Respitory Rate 18 06/16/2017 [facility] Temperature Oral (F) 97.8 F 06/16/2017 [facility] Heart Rate 78 06/16/2017 [facility] Heart Rate 76 06/16/2017 [facility] Temperature Oral (F) 98.1 F 06/16/2017 [facility] Respitory Rate 18 06/16/2017 [facility] Systolic (mm Hg) 134 06/16/2017 [facility] Diastolic (mm Hg) 78 06/16/2017 [facility] Height 157.48 cm 06/15/2017 [facility] Weight 55.483 06/15/2017 [facility] BMI Calculated 22.37 06/15/2017 [facility] Weight 56.818 06/14/2017 [facility] BMI Calculated 22.91 06/14/2017 [facility] Height 157.48 cm 06/14/2017 [facility] Weight 120.7 02/10/2017 2.16.840.1.611720.4.391.11.39551 Height 60.0 02/10/2017 2.16.840.1.889861.4.391.11.61424 Temperature Oral (F) 98.0 F 02/10/2017 2.16.840.1.714917.4.391.11.19497 Heart Rate 80 02/10/2017 2.16.840.1.805548.4.391.11.38449 Diastolic (mm Hg) 94 02/10/2017 2.16.840.1.632967.4.391.11.81509 Systolic (mm Hg) 169 02/10/2017 2.16.840.1.183764.4.391.11.18383 Weight 118.2 10/08/2016 Jonathan Vazquez Height 60 10/08/2016 Jonathan Vazquez Heart Rate 75 10/08/2016 Jonathan Vazquez Diastolic (mm Hg) 91 10/08/2016 Jonathan Vazquez Systolic (mm Hg) 169 10/08/2016 Jonathan Vazquez Encounters Location Location Details Encounter Type Encounter Number Reason For Visit Attending Provider ADM Date DC Date Status Source Jonathan Vazquez MD [place] Consult [id number] 10/08/2016 10/08/2016 Jonathan Vazquez [facility] Inpatient [id number] Denzel Zhang 06/14/2017 06/16/2017 [facility] Procedures Procedure Code Date Perfomer Comments Source Gallbladder stone removal [id number] [facility]
--- OUTSIDE RECORDS SUMMARY | 2018-07-02 05:14 | XMS REPORT ---
Author Author Denzel Holcomb Organization [employer] Address Unknown Phone Unavailable Care Team Providers Care Mechanics Handyman Name Role Phone Denzel Holcomb CP Unavailable Allergies No Known Allergies Problems Problem Type Condition Code Onset Dates Condition Status Problem Essential (primary) hypertension I10 Active Assessment Abdominal aortic aneurysm without rupture I71.4 Active Problem Abdominal aortic aneurysm without rupture I71.4 Active Medications No Known Medications Results No Known Results Summary Purpose [employer] Submission
--- OUTSIDE RECORDS SUMMARY | 2018-07-02 05:14 | XMS REPORT ---
Author Author Denzel Holcomb Organization [employer] Address Unknown Phone Unavailable Care Team Providers Care Steel Pourer Helper Name Role Phone Denzel Holcomb CP Unavailable Allergies, Adverse Reactions, Alerts Substance Reaction Event Type penicillin Info Not Available Drug Allergy Problems Problem Type Condition Code Onset Dates Condition Status Assessment PUD (peptic ulcer disease) K27.9 Active Assessment Acute left-sided low back pain with left-sided sciatica M54.42 Active Assessment Hypertensive urgency I16.0 Active Assessment Chronic allergic rhinitis, unspecified seasonality, unspecified trigger J30.9 Active Problem Hypertensive urgency I16.0 Active Problem Acute left-sided low back pain with left-sided sciatica M54.42 Active Problem Kidney stone N20.0 Active Problem Abdominal aortic aneurysm without rupture I71.4 Active Problem Essential (primary) hypertension I10 Active Problem Chronic allergic rhinitis, unspecified seasonality, unspecified trigger J30.9 Active Problem PUD (peptic ulcer disease) K27.9 Active Medications Medication Code System Code Instructions Start Date End Date Status Dosage Hemocyte [facility] 53874367729 324 (106 Fe) MG Orally daily Active 1 capsule Prevacid [facility] 40796516958 30 MG Orally twice a day (bid) Jun 30, 2017 Active 1 capsule Tylenol/Codeine #3 [facility] 78248898889 300-30 MG Orally every 6 hrs December 30, 2017 January 09, 2018 Active 1 tablet as needed Cipro [facility] 10362148134 500 mg Orally Once a day December 30, 2017 January 09, 2018 Active 1 tablet Lisinopril-Hydrochlorothiazide [facility] 92311528394 10-12.5 MG Orally Once a day February 10, 2017 Active 1 tablet Flonase [facility] [address]-44 50 MCG/DOSE Nasally Once a day Jun 26, 2017 Active 1 spray in each nostril Vital Signs Date/Time: December 30, 2017 BMI 24.18 Index Weight 123.8 lbs Height 60.0 in Temperature 98.4 F Cardiac Monitoring Heart Rate 74 /min Blood Pressure Diastolic 100 mm Hg Blood Pressure Systolic 190 mm Hg Results Name Result Date Reference Range Unit Abnormality Flag CULTURE, URINE, ROUTINE ----SOURCE: URINE [id number] ----STATUS: FINAL [id number] ----ISOLATE 1: SEE NOTE [id number] A Summary Purpose [employer] Submission
--- OUTSIDE RECORDS SUMMARY | 2018-07-02 05:15 | XMS REPORT ---
Author Author Denzel Holcomb Organization [employer] Address Unknown Phone Unavailable Care Team Providers Care Media Sales Consultant Name Role Phone Denzel Holcomb CP Unavailable Allergies No Known Allergies Problems Problem Type Condition Code Onset Dates Condition Status Assessment Acute left-sided low back pain with left-sided sciatica M54.42 Active Problem Hypertensive urgency I16.0 Active Problem [...] Instructions Start Date End Date Status Dosage Tylenol/Codeine #3 [facility] 90514280822 300-30 MG Orally every 6 hrs December 30, 2017 Active 1 tablet as needed Results No Known Results Summary Purpose [employer] Submission
--- OUTSIDE RECORDS SUMMARY | 2018-07-02 05:15 | XMS REPORT ---
Author Author Denzel Holcomb Organization [employer] Address Unknown Phone Unavailable Care Team Providers Care Stock Car Driver Name Role Phone Denzel Holcomb CP Unavailable Allergies, Adverse Reactions, Alerts Substance Reaction Event Type penicillin Info Not Available Drug Allergy Problems Problem Type Condition Code Onset Dates Condition Status Assessment Chronic allergic rhinitis, unspecified seasonality, unspecified trigger J30.9 Active Assessment Essential (primary) hypertension I10 Active Assessment PUD (peptic ulcer disease) K27.9 Active Assessment Kidney stone N20.0 Active Problem Hypertensive urgency I16.0 Active Problem [...] Start Date End Date Status Dosage Lisinopril-Hydrochlorothiazide [facility] 97941203787 10-12.5 MG Orally Once a day February 10, 2017 Active 1 tablet Flonase [facility] [address]-00 50 MCG/DOSE Nasally Once a day Jun 26, 2017 Active 1 spray in each nostril Prevacid [facility] 88850679495 30 MG Orally twice a day (bid) Jun 30, 2017 Active 1 capsule Hemocyte [facility] 66201950796 324 (106 Fe) MG Orally daily Active 1 capsule Lisinopril-Hydrochlorothiazide [facility] 93670593660 20-25 MG Orally Once a day January 13, 2018 Active 1 tablet Helnkwi-Mdutcy-Jxzuc Pertussis [facility] [address]-02 5-2.5-18.5 LF-MCG/0.5 Intramuscular as directed January 13, 2018 January 14, 2018 Active as directed Vital Signs Date/Time: January 13, 2018 BMI 24.14 Index Weight 123.6 lbs Height 60.0 in Temperature 98.4 F Cardiac Monitoring Heart Rate 73 /min Blood Pressure Diastolic 80 mm Hg Blood Pressure Systolic 145 mm Hg Results No Known Results Summary Purpose [employer] Submission
--- OUTSIDE RECORDS SUMMARY | 2018-07-02 05:15 | XMS REPORT ---
Author Author Jonathan Vazquez Organization [employer] Address Unknown Phone Unavailable Care Team Providers Care Hospital Superintendent Name Role Phone Jonathan Vazquez CP Unavailable Allergies, Adverse Reactions, Alerts Substance Reaction Event Type Peniciline rash Drug Allergy Encounters Encounter Location Date Consult [place] Vazquez [place] Oct 08, 2016 Problems Problem Type Condition ICD-9 Code Onset Dates Condition Status Problem Carpal tunnel syndrome, left G56.02 Active Assessment Essential hypertension I10 Active Problem Essential hypertension I10 Active Assessment Body mass index (BMI) 22.0-22.9, adult Z68.22 Active Assessment Cervicalgia M54.2 Active Assessment Carpal tunnel syndrome, left G56.02 Active Medications Medication Code System Code Instructions Start Date End Date Status Dosage Meloxicam [facility] [address]-30 7.5 MG Orally Once a day Oct 08, 2016 Nov 07, 2016 Active 1 tablet Losartan Potassium-HCTZ [facility] [address]-64 100-12.5 MG Orally Once a day Oct 08, 2016 Active 1 tablet Social History Social History Element Qualifiers Date Reported drug use . no Oct 08, 2016 Tobacco Use: . Are you a: never smoker Oct 08, 2016 Pets: . YES, 5 dogs and cats Oct 08, 2016 Marital Status: . Oct 08, 2016 Caffeine: . YES Oct 08, 2016 Alcohol: . 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 Oct 08, 2016 Family history Qualifier Description Comment Date Reported Maternal Grandmother Comment not available Oct 08, 2016 Paternal Grandmother Comment not available Oct 08, 2016 Siblings Comment not available Oct 08, 2016 Maternal Grandfather Comment not available Oct 08, 2016 Children Comment not available Oct 08, 2016 Father Comment not available Oct 08, 2016 Paternal Grandfather Comment not available Oct 08, 2016 Mother Comment not available Oct 08, 2016 Other: Comment not available Oct 08, 2016 Vital Signs Date/Time: Oct 08, 2016 Weight 118.2 lbs Height 60 in Cardiac Monitoring Heart Rate 75 /min Blood Pressure Diastolic 91 mm Hg Blood Pressure Systolic 169 mm Hg Summary Purpose [employer]ClinicalWorks Submission
--- OUTSIDE RECORDS SUMMARY | 2018-07-02 05:15 | XMS REPORT | Summary of Care ---
Author Author [facility] Organization [facility] Address Unknown Phone Unavailable Encounter ALO Cabrera(RON) [id number] Date(s): 06/14/17 - 06/16/17 [facility] [address] [place] [address]- [phone] Discharge Disposition: Home or Self Care Attending Physician: Denzel Holcomb MD Admitting Physician: Denzel Holcomb MD Vital Signs 1 2 3 Most recent to oldest [Reference Range]: 157.48 cm (06/14/17 9:22 PM) 157.48 cm (06/14/17 4:17 PM) Height 98.4 DegF (06/16/17 12:00 PM) 97.8 DegF (06/16/17 7:59 AM) 98.1 DegF (06/16/17 3:19 AM) Temperature Oral [96.4-99.1 DegF] 147/82 mmHg *HI* (06/16/17 12:00 PM) 157/87 mmHg *HI* (06/16/17 7:59 AM) 134/78 mmHg (06/16/17 3:19 AM) Blood Pressure [90-140/60-90 mmHg] 16 BRMIN (06/16/17 12:00 PM) 18 BRMIN (06/16/17 7:59 AM) 18 BRMIN (06/16/17 3:19 AM) Respiratory Rate [14-20 BRMIN] 83 bpm (06/16/17 12:00 PM) 78 bpm (06/16/17 7:59 AM) 76 bpm (06/16/17 3:19 AM) Peripheral Pulse Rate [60-100 bpm] 55.483 kg (06/14/17 9:22 PM) 56.818 kg (06/14/17 4:17 PM) Weight 22.37 m2 (06/14/17 9:22 PM) 22.91 m2 (06/14/17 4:17 PM) Body Mass Index Problem List Condition Effective Dates Status Health Status Informant Escherichia 06/14/17 Active coli(Confirmed)1, 2 Hypertension(Confirm Resolved ed) Peptic Resolved ulcer(Confirmed) 1urine (ESBL+), 06/14/2017 2Problem added by Discern Expert. Allergies, Adverse Reactions, Alerts Substance Reaction Severity Status penicillin Active Medications acetaminophen 650 mg, 2 tab, Route: PO, Drug form: TAB, Q4H, Dosing Weight 56.818, kg, PRN Randolph n 1-3/Temp > 100.4 F, Start date: 06/14/17 19:16:00 CDT, Duration: 30 day, Stop date: 07/14/17 19:15:00 CDT Notes: Do not exceed 4 gm/day. (Same as: Tylenol) Start Date: 06/14/17 Stop Date: 06/16/17 Status: Discontinued acetaminophen-hydrocodone 325 mg-5 mg oral tablet 1 tab, Route: PO, Drug Form: TAB, Dosing Weight 56.818, kg, Q4H, PRN Pain Score 4-6, Start date: 06/14/17 19:16:00 CDT, Duration: 30 day, Stop date: 07/14/17 19 :15:00 CDT Notes: (Same as: [place] 325/5) Do not exceed 4gm/day of acetaminophen. Start Date: 06/14/17 Stop Date: 06/16/17 Status: Discontinued Benadryl 25 mg, 0.5 mL, Route: IVP, Drug form: INJ, TID, Dosing Weight 56.818, kg, PRN as needed for itching, Start date: 06/14/17 19:16:00 CDT, Duration: 30 day, Stop d ate: 07/14/17 19:15:00 CDT Notes: (Same as: Benadryl) Start Date: 06/14/17 Stop Date: 06/16/17 Status: Discontinued Benadryl 50 mg, 2 tab, Route: PO, Drug form: TAB, Bedtime, Dosing Weight 56.818, kg, PRN as needed for insomnia, Start date: 06/14/17 19:16:00 CDT, Duration: 30 day, Sto p date: 07/14/17 19:15:00 CDT Start Date: 06/14/17 Stop Date: 06/16/17 Status: Discontinued Carafate 1 g oral tablet 1 gm=1 tab, PO, QID-Before Meals, # 120 tab, 0 Refill(s), Pharmacy: [facility] [id number] Start Date: 06/15/17 Status: Ordered Cipro 500 mg oral tablet 500 mg=1 tab, PO, Q12H, X 10 day, # 20 tab, 0 Refill(s), Pharmacy: [facility] [id number] Start Date: 06/16/17 Stop Date: 06/26/17 Status: Ordered docusate 100 mg, 1 cap, Route: PO, Drug form: CAP, BID, Dosing Weight 56.818, kg, PRN as needed for constipation, Start date: 06/14/17 19:16:00 CDT, Duration: 30 day, St op date: 07/14/17 19:15:00 CDT Notes: (Same as: Colace) (Do Not Crush) Start Date: 06/14/17 Stop Date: 06/16/17 Status: Discontinued Hemocyte Plus oral capsule 1 cap, PO, Daily, # 30 cap, 3 Refill(s), Pharmacy: [facility] [id number] Start Date: 06/16/17 Status: Ordered hydrALAZINE 10 mg, 0.5 mL, Route: IVP, Drug form: INJ, Q4H, Dosing Weight 56.818, kg, PRN El evated BP, if SBP>150, Start date: 06/14/17 19:16:00 CDT, Duration: 30 day, Stop date: 07/14/17 19:15:00 CDT Notes: (Same as: Apresoline)Push over 5 minutes Start Date: 06/14/17 Stop Date: 06/16/17 Status: Discontinued influenza virus vaccine, inactivated 0.5 mL, Route: IM, Drug Form: SUSP, Daily, Start date: 06/15/17 9:00:00 CDT, Dur ation: 1 doses or times, Stop date: 06/15/17 9:00:00 CDT Notes: (Same as: Fluzone Quadrivalent, Fluarix Quadrivalent)For 3 years of age a nd older (0.5 mL IM)Shake well before use Start Date: 06/15/17 Stop Date: 06/15/17 Status: Deleted influenza virus vaccine, inactivated 0.5 mL, Route: IM, Drug Form: SUSP, Daily, Start date: 06/15/17 16:00:00 CDT, Du ration: 1 doses or times, Stop date: 06/15/17 16:00:00 CDT Notes: (Same as: Fluzone Quadrivalent, Fluarix Quadrivalent)For 3 years of age a nd older (0.5 mL IM)Shake well before use Start Date: 06/15/17 Stop Date: 06/15/17 Status: Completed Levaquin 500 mg, 2 tab, Route: PO, Drug form: TAB, [id number], Dosing Weight 55.483, kg, Sta rt date: 06/15/17 11:00:00 CDT, Duration: 3 day, Stop date: 06/17/17 11:00:00 CD T, ABX Indication: Urinary Tract Infection Notes: Do not give w/antacids, dairy pdt & minerals Take 1 hr before or 2 hr after dairy pdt (Same as:Levaquin) Start Date: 06/15/17 Stop Date: 06/16/17 Status: Discontinued morphine Sulfate 2 mg, 1 mL, Route: IVP, Drug form: SOLN, Q4H, Dosing Weight 56.818, kg, PRN Pain Score 7-10, Start date: 06/14/17 19:16:00 CDT, Duration: 30 day, Stop date: 19:15:00 CDT Start Date: 06/14/17 Stop Date: 06/14/17 Status: Discontinued morphine Sulfate 2 mg, 1 mL, Route: IVP, Drug form: SOLN, Q4H, Dosing Weight 56.818, kg, PRN Pain Score 7-10, Start date: 06/14/17 20:58:00 CDT, Duration: 30 day, Stop date: 20:57:00 CDT Start Date: 06/14/17 Stop Date: 06/16/17 Status: Discontinued NexIUM OTC 20 mg oral delayed release capsule 20 mg=1 cap, PO, Daily, 0 Refill(s) Start Date: 06/14/17 Stop Date: 06/15/17 Status: Discontinued Omnipaque 300 50 ml, Route: PO, Drug Form: SOLN, Dosing Weight 55.483, kg, ONCE, Start date: 11:41:00 CDT, Stop date: 06/15/17 11:41:00 CDT Notes: (Same as:Omnipaque 300).WASTE: F/P - Black; E - Municipal Trash Bin Start Date: 06/15/17 Stop Date: 06/15/17 Status: Completed ondansetron 4 mg, 2 mL, Route: IVP, Drug form: INJ, Q6H, Dosing Weight 56.818, kg, PRN Nause a & Vomiting, Start date: 06/14/17 19:16:00 CDT, Duration: 30 day, Stop date: 07/14/17 19:15:00 CDT Notes: (Same as: Luis Antonio) MEDICATION WASTE Product Size: 4 mgProduct Was elmer: ___ mg Start Date: 06/14/17 Stop Date: 06/14/17 Status: Discontinued ondansetron 4 mg, 2 mL, Route: IVP, Drug form: INJ, Q4H, Dosing Weight 56.818, kg, PRN Nause a & Vomiting, Start date: 06/14/17 19:15:00 CDT, Duration: 30 day, Stop date: 07/14/17 19:14:00 CDT Notes: (Same as: Luis Antonio) MEDICATION WASTE Product Size: 4 mgProduct Was elmer: ___ mg Start Date: 06/14/17 Stop Date: 06/14/17 Status: Discontinued ondansetron 4 mg, 2 mL, Route: IVP, Drug form: INJ, Q6H, Dosing Weight 56.818, kg, PRN Nause a & Vomiting, Start date: 06/14/17 20:58:00 CDT, Duration: 30 day, Stop date: 07/14/17 20:57:00 CDT Notes: (Same as: Luis Antonio) MEDICATION WASTE Product Size: 4 mgProduct Was elmer: ___ mg Start Date: 06/14/17 Stop Date: 06/16/17 Status: Discontinued pantoprazole 80 mg + sodium chloride 0.9% 100 mL INJ (for IV set) 100 mL 100 mL, Rate: 10 ml/hr, Infuse over: 10 hr, Route: IV, Dosing Weight 56.818 kg, Total Volume: 100, Start date: 06/14/17 17:43:00 CDT, Duration: 72 hr, Stop date : 06/23/17 17:42:00 CDT Notes: infuse at 8 mg/hr (10 ml/hr) for 72 hrs for GI bleed Start Date: 06/14/17 Stop Date: 06/16/17 Status: Discontinued Protonix 40 mg oral enteric coated tablet 40 mg=1 tab, PO, BID, # 120 tab, 1 Refill(s), Pharmacy: [facility] [id number] Start Date: 06/15/17 Stop Date: 10/13/17 Status: Ordered Saline Flush 0.9% 10 ml, Route: IVP, Drug Form: INJ, Dosing Weight 56.818, kg, PRN, PRN Line Flush , Start date: 06/14/17 19:15:00 CDT, Duration: 30 day, Stop date: 07/14/17 19:14 :00 CDT Notes: (Same as: BD Posiflush) Start Date: 06/14/17 Stop Date: 06/16/17 Status: Discontinued Saline Flush 0.9% 10 mL, Route: IVP, Drug Form: INJ, Dosing Weight 56.818, kg, PRN, PRN Line Flush , Start date: 06/14/17 16:19:00 CDT, Duration: 30 day, Stop date: 07/14/17 16:18 :00 CDT Notes: preservative free. Start Date: 06/14/17 Stop Date: 06/16/17 Status: Discontinued Saline Flush 0.9% 10 ml, Route: IVP, Drug Form: INJ, Dosing Weight 56.818, kg, PRN, PRN Line Flush , Start date: 06/14/17 20:58:00 CDT, Duration: 30 day, Stop date: 07/14/17 20:57 :00 CDT Notes: (Same as: BD Posiflush) Start Date: 06/14/17 Stop Date: 06/16/17 Status: Discontinued simethicone 160 mg, 2 tab, Route: CHEW, Drug form: CHEWTAB, TID, Dosing Weight 56.818, kg, P RN as needed for gas, Start date: 06/14/17 19:16:00 CDT, Duration: 30 day, Stop date: 07/14/17 19:15:00 CDT Notes: (Same as: Sylvieindy) Start Date: 06/14/17 Stop Date: 06/16/17 Status: Discontinued sodium chloride 0.9% 1000 ml INJ 1,000 mL 1,000 mL, Rate: 75 ml/hr, Infuse over: 13.3 hr, Route: IV, Dosing Weight 56.818 kg, Total Volume: 1,000, Start date: 06/14/17 19:15:00 CDT, Duration: 30 day, St op date: 07/14/17 19:14:00 CDT Start Date: 06/14/17 Stop Date: 06/14/17 Status: Discontinued sodium chloride 0.9% 1000 ml INJ 1,000 mL 1,000 mL, Rate: 125 ml/hr, Infuse over: 8 hr, Route: IV, Dosing Weight 56.818 kg , Total Volume: 1,000, Start date: 06/14/17 20:58:00 CDT, Duration: 30 day, Stop date: 07/14/17 20:57:00 CDT Start Date: 06/14/17 Stop Date: 06/16/17 Status: Discontinued sodium chloride 0.9% INJ 250 mL 250 mL, Rate: Ict Sales Assistant for use with blood product administration., Dosing Weight 56.818, kg, Route: IV, Total Volume: 250, Priority: Routine, Start Date: 7 17:26:00 CDT, Duration: 1 day, Stop date: 06/15/17 17:25:00 CDT, Replace Every : 24 hr Start Date: 06/14/17 Stop Date: 06/15/17 Status: Completed sodium chloride 0.9% INJ 250 mL 250 mL, Rate: Ict Sales Assistant for use with blood product administration., Dosing Weight 56.818, kg, Route: IV, Total Volume: 250, Priority: Routine, Start Date: 7 16:19:00 CDT, Duration: 1 day, Stop date: 06/15/17 16:18:00 CDT, Replace Every : 24 hr Start Date: 06/14/17 Stop Date: 06/15/17 Status: Completed Sodium Chloride 0.9% IV 1000 mL 1,000 mL, Rate: 25 ml/hr, Infuse over: 40 hr, Route: IV, Dosing Weight 55.483 kg , Total Volume: 1,000, Start date: 06/15/17 10:04:00 CDT, Duration: 30 day, Stop date: 07/15/17 10:03:00 CDT Start Date: 06/15/17 Stop Date: 06/15/17 Status: Discontinued Sodium Chloride 0.9% IV 250 mL + esomeprazole 80 mg 250 mL, Rate: 25 ml/hr, Infuse over: 10 hr, Route: IV, Dosing Weight 56.818 kg, Total Volume: 250, Start date: 06/14/17 17:35:00 CDT, Duration: 72 hr, Stop date : 06/17/17 17:34:00 CDT Start Date: 06/14/17 Stop Date: 06/14/17 Status: Deleted Tums 1,500 mg, 3 tab, Route: CHEW, Drug form: CHEWTAB, TID, Dosing Weight 56.818, kg, PRN as needed for dyspepsia, Start date: 06/14/17 19:16:00 CDT, Duration: 30 da y, Stop date: 07/14/17 19:15:00 CDT Notes: (Same As: Tums)Calcium Carbonate 500 pn=290 mg elemental calcium Dose=_ mg calcium carbonate ( mg elemental calcium) Start Date: 06/14/17 Stop Date: 06/16/17 Status: Discontinued UNKNOWN BP UNKNOWN BP, 30 mg=, PO, Daily, PRN Hypertension, Refill(s) 0 Start Date: 06/14/17 Stop Date: 06/15/17 Status: Discontinued Results BLOOD BANK RESULTS 1 2 3 Most recent to oldest [Reference Range]: O POS *Unknown* (06/14/17 4:49 PM) ABO/Rh Negative (06/14/17 4:49 PM) Antibody Scrn Product available 1 (06/16/17 7:37 AM) Product available 2 (06/14/17 5:26 PM) RBC product 1Result Comment: 06/16/2017 07:57 [id number] notified RN philip blood is ready for clam picker 2Result Comment: 06/14/2017 18:01 [id number] Called to Parul Nicholas at 06/14/2017 18:01 by Kan Villegas. ELECTROLYTES 1 2 3 Most recent to oldest [Reference Range]: 144 mEq/L (06/16/17 5:50 AM) 145 mEq/L (06/15/17 6:47 AM) 142 mEq/L (06/14/17 4:49 PM) Sodium Lvl [135-145 mEq/L] 3.8 mEq/L (06/16/17 5:50 AM) 3.6 mEq/L (06/15/17 6:47 AM) 4.1 mEq/L (06/14/17 4:49 PM) Potassium Lvl [3.5-5.1 mEq/L] 112 mEq/L *HI* (06/16/17 5:50 AM) 115 mEq/L *HI* (06/15/17 6:47 AM) 111 mEq/L *HI* (06/14/17 4:49 PM) Chloride Lvl [95-109 mEq/L] 26 mEq/L (06/16/17 5:50 AM) 22 mEq/L *LOW* (06/15/17 6:47 AM) 23 mEq/L *LOW* (06/14/17 4:49 PM) CO2 [24-32 mEq/L] 9.8 mEq/L *LOW* (06/16/17 5:50 AM) 11.6 mEq/L (06/15/17 6:47 AM) 12.1 mEq/L (06/14/17 4:49 PM) AGAP [10.0-20.0 mEq/L] CHEM PANEL 1 2 3 Most recent to oldest [Reference Range]: 0.63 mg/dL (06/16/17 5:50 AM) 0.58 mg/dL (06/15/17 6:47 AM) 0.63 mg/dL (06/14/17 4:49 PM) Creatinine Lvl [0.50-1.40 mg/dL] 96 mL/min/1.73m2 1 *NA* (06/16/17 5:50 AM) 99 mL/min/1.73m2 2 *NA* (06/15/17 6:47 AM) 96 mL/min/1.73m2 3 *NA* (06/14/17 4:49 PM) eGFR 20 mg/dL (06/16/17 5:50 AM) 32 mg/dL *HI* (06/15/17 6:47 AM) 34 mg/dL *HI* (06/14/17 4:49 PM) BUN [7-22 mg/dL] 55 *HI* (06/15/17 6:47 AM) 54 *HI* (06/14/17 4:49 PM) B/C Ratio [6-25] 87 mg/dL (06/16/17 5:50 AM) 90 mg/dL (06/15/17 6:47 AM) 102 mg/dL *HI* (06/14/17 4:49 PM) Glucose Lvl [70-99 mg/dL] 5.6 g/dL *LOW* (06/15/17 6:47 AM) 6.5 g/dL (06/14/17 4:49 PM) Total Protein [6.4-8.4 g/dL] 2.5 g/dL *LOW* (06/15/17 6:47 AM) 2.9 g/dL *LOW* (06/14/17 4:49 PM) Albumin Lvl [3.5-5.0 g/dL] 3.1 g/dL (06/15/17 6:47 AM) 3.6 g/dL (06/14/17 4:49 PM) Globulin [2.7-4.2 g/dL] 0.8 (06/15/17 6:47 AM) 0.8 (06/14/17 4:49 PM) A/G Ratio [0.7-1.6] 7.8 mg/dL *LOW* (06/16/17 5:50 AM) 8.0 mg/dL *LOW* (06/15/17 6:47 AM) 8.3 mg/dL *LOW* (06/14/17 4:49 PM) Calcium Lvl [8.5-10.5 mg/dL] 2.5 mg/dL (06/15/17 6:47 AM) Phosphorus [2.5-4.5 mg/dL] 2.0 mg/dL (06/15/17 6:47 AM) Magnesium Lvl [1.8-2.4 mg/dL] 16 unit/L (06/15/17 6:47 AM) 23 unit/L (06/14/17 4:49 PM) ALT [0-65 unit/L] 16 unit/L (06/15/17 6:47 AM) 19 unit/L (06/14/17 4:49 PM) AST [0-37 unit/L] 65 unit/L (06/15/17 6:47 AM) 80 unit/L (06/14/17 4:49 PM) Alk Phos [39-136 unit/L] 0.7 mg/dL (06/15/17 6:47 AM) 0.2 mg/dL (06/14/17 4:49 PM) Bili Total [0.2-1.3 mg/dL] 1Result Comment: The eGFR is calculated using the [...] from the National Kid[employer] Education Program ( NKDEP) which additionally recommends that when the eGFR is used in patients with extremes of body mass index for purposes of drug dosing, the eGFR should be mul tiplied by the estimated BMI. 2Result Comment: The eGFR is calculated using the [...] from the National Kid[employer] Education Program ( NKDEP) which additionally recommends that when the eGFR is used in patients with extremes of body mass index for purposes of drug dosing, the eGFR should be mul tiplied by the estimated BMI. 3Result Comment: The eGFR is calculated using the [...] from the National Kid[employer] Education Program ( NKDEP) which additionally recommends that when the eGFR is used in patients with extremes of body mass index for purposes of drug dosing, the eGFR should be mul tiplied by the estimated BMI. CARDIAC ENZYMES 1 2 3 Most recent to oldest [Reference Range]: <0.02 ng/mL (06/14/17 4:49 PM) Troponin-I [0.00-0.40 ng/mL] URINE AND STOOL 1 2 3 Most recent to oldest [Reference Range]: Slight *ABN* (06/14/17 11:13 PM) UA Turbidity [Clear] Ltyellow *NA* (06/14/17 11:13 PM) UA Color 6.0 (06/14/17 11:13 PM) UA pH [5.0-8.0] 1.013 (06/14/17 11:13 PM) UA Spec Grav [<=1.030] Negative mg/dL *NA* (06/14/17 11:13 PM) UA Glucose [Negative mg/dL] Negative (06/14/17 11:13 PM) UA Blood [Negative] Negative mg/dL *NA* (06/14/17 11:13 PM) UA Ketones [Negative mg/dL] Negative mg/dL (06/14/17 11:13 PM) UA Protein [Negative mg/dL] <=1.0 mg/dL *NA* (06/14/17 11:13 PM) UA Urobilinogen [0.1-1.0 mg/dL] Negative *NA* (06/14/17 11:13 PM) UA Bili [Negative] Large *ABN* (06/14/17 11:13 PM) UA Leuk Est [Negative] Negative (06/14/17 11:13 PM) UA Nitrite [Negative] >182 /HPF *HI* (06/14/17 11:13 PM) UA WBC [0-5 /HPF] 5 /HPF *HI* (06/14/17 11:13 PM) UA RBC [0-2 /HPF] Many /HPF *ABN* (06/14/17 11:13 PM) UA Bacteria [None Seen /HPF] None Seen *NA* (06/14/17 11:13 PM) UA Sq Epi 1 /LPF (06/14/17 11:13 PM) UA Hyal Cast [0-2 /LPF] Positive *ABN* (06/15/17 10:01 AM) Occult Bld Stl [Negative] HEMATOLOGY 1 2 3 Most recent to oldest [Reference Range]: 7.4 K/CMM (06/16/17 2:32 PM) 7.3 K/CMM (06/16/17 5:50 AM) 7.2 K/CMM (06/15/17 6:47 AM) WBC [3.7-10.4 K/CMM] 3.43 M/CMM *LOW* (06/16/17 2:32 PM) 3.04 M/CMM *LOW* (06/16/17 5:50 AM) 3.20 M/CMM *LOW* (06/15/17 6:47 AM) RBC [4.20-5.40 M/CMM] 8.6 g/dL *LOW* (06/16/17 2:32 PM) 7.3 g/dL *LOW* (06/16/17 5:50 AM) 7.9 g/dL *LOW* (06/15/17 1:39 PM) Hgb [12.0-16.0 g/dL] 26.0 % *LOW* (06/16/17 2:32 PM) 22.4 % *LOW* (06/16/17 5:50 AM) 24.3 % *LOW* (06/15/17 1:39 PM) Hct [36.0-48.0 %] 75.9 fL *LOW* (06/16/17 2:32 PM) 73.9 fL *LOW* (06/16/17 5:50 AM) 74.3 fL *LOW* (06/15/17 6:47 AM) MCV [80.0-98.0 fL] 25.2 pg *LOW* (06/16/17 2:32 PM) 23.9 pg *LOW* (06/16/17 5:50 AM) 24.4 pg *LOW* (06/15/17 6:47 AM) MCH [27.0-31.0 pg] 33.2 g/dL (06/16/17 2:32 PM) 32.4 g/dL (06/16/17 5:50 AM) 32.9 g/dL (06/15/17 6:47 AM) MCHC [32.0-36.0 g/dL] 20.9 % *HI* (06/16/17 2:32 PM) 21.2 % *HI* (06/16/17 5:50 AM) 20.8 % *HI* (06/15/17 6:47 AM) RDW [11.5-14.5 %] 219 K/CMM (06/16/17 2:32 PM) 210 K/CMM (06/16/17 5:50 AM) 188 K/CMM (06/15/17 6:47 AM) Platelet [133-450 K/CMM] 7.3 fL *LOW* (06/16/17 2:32 PM) 7.6 fL (06/16/17 5:50 AM) 7.6 fL (06/15/17 6:47 AM) MPV [7.4-10.4 fL] 54.0 % (06/16/17 5:50 AM) 54.2 % (06/15/17 6:47 AM) 69.6 % (06/14/17 4:49 PM) Segs [45.0-75.0 %] 34.2 % (06/16/17 5:50 AM) 35.9 % (06/15/17 6:47 AM) 23.7 % (06/14/17 4:49 PM) Lymphocytes [20.0-40.0 %] 7.9 % (06/16/17 5:50 AM) 7.6 % (06/15/17 6:47 AM) 5.5 % (06/14/17 4:49 PM) Monocytes [2.0-12.0 %] 3.3 % (06/16/17 5:50 AM) 1.8 % (06/15/17 6:47 AM) 0.5 % (06/14/17 4:49 PM) Eosinophils [0.0-4.0 %] 0.6 % (06/16/17 5:50 AM) 0.5 % (06/15/17 6:47 AM) 0.7 % (06/14/17 4:49 PM) Basophils [0.0-1.0 %] 3.9 K/CMM (06/16/17 5:50 AM) 3.9 K/CMM (06/15/17 6:47 AM) 6.1 K/CMM (06/14/17 4:49 PM) Segs-Bands # [1.5-8.1 K/CMM] 2.5 K/CMM (06/16/17 5:50 AM) 2.6 K/CMM (06/15/17 6:47 AM) 2.1 K/CMM (06/14/17 4:49 PM) Lymphocytes # [1.0-5.5 K/CMM] 0.6 K/CMM (06/16/17 5:50 AM) 0.5 K/CMM (06/15/17 6:47 AM) 0.5 K/CMM (06/14/17 4:49 PM) Monocytes # [0.0-0.8 K/CMM] 0.2 K/CMM (06/16/17 5:50 AM) 0.1 K/CMM (06/15/17 6:47 AM) Eosinophils # [0.0-0.5 K/CMM] 0.1 K/CMM (06/14/17 4:49 PM) Basophils # [0.0-0.2 K/CMM] 1+ *ABN* (06/16/17 5:50 AM) 1+ *ABN* (06/15/17 6:47 AM) 2+ *ABN* (06/14/17 4:49 PM) Microcyte [None Seen] Normal (06/14/17 4:49 PM) Plt Morph 12.8 seconds (06/14/17 4:49 PM) PT [12.0-14.7 seconds] 0.94 (06/14/17 4:49 PM) INR [0.85-1.17] 26.1 seconds (06/14/17 4:49 PM) PTT [22.9-35.8 seconds] Immunizations Given and Recorded Vaccine Date Status Refusal Reason influenza virus vaccine, inactivated 06/15/17 Given Procedures Procedure Date Related Diagnosis Body Site Gallbladder stone removal Social History Social History Type Response Substance Abuse Use: None. Alcohol Never Smoking Status Never smoker; Ready to change: No; Concerns about tobacco use in household: No; Exposure to Tobacco Smoke None; Cigarette Smoking Last 365 Days No; Reg Smoking Cessation Counseling No Assessment and Plan Extracted from: Title: Clinical Document Author: Geraldo Jimenez MD Date: 06/16/17 Progress Note Gastroenterology and Hepatology ASSESSMENT /PLAN: 61-year-old female with past medical history of hypertension, back pain, who was admitted with a few day history of generalized fatigue, weakness, shortness of breath and dizziness as well as melena, upper abdominal pain and found to have found to have a significant posthemorrhagic anemia on labs. She has history of significant NSAID use. Labs also revealed evidence of UTI with E coli. EGD 06/15/17 with Small hiatal hernia. Mild gastritis . Random gastric biopsies were obtained. Actively oozing duodenal bulb ulcer treated with epinephrine. Multiple healing duodenal ulcers and moderate duodenitis seen in duodenal bulb and sweep with significant deformity of duodenal bulb. CT abdomen/pelvis with Large staghorn calculus within the left renal pelvis results in mild left hydronephrosis. Recommend PPI bid for 6 weeks. Avoid NSAIDs Treatment of UTI and evaluation of nephrolithiasis with hydronephrosis per primary. The patient was advised to follow up in 1 to 2 weeks as an outpatient after discharge. Repeat EGD to check healing and screening colonoscopy as outpatient in 6 weeks. p.o. iron on discharge. SUBJECTIVE: Pt feeling better. No further bleeding. 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 (all previously charted lines have been discontinued) Gallbladder stone removal I&ORecordInOutBal 4hr Tot 240 0 240 4hr Tot 1083 0 1083 No qualifying data available Labs (Last four charted values) WBC 7.4(JUN 16)7.3(JUN 16)7.2(JUN 15)8.8(JUN 14) Hgb L 8.6(JUN 16)L 7.3(JUN 16)L 7.9(JUN 15)L 7.8(JUN 15) Hct L 26.0(JUN 16)L 22.4(JUN 16)L 24.3(JUN 15)L 23.7(JUN 15) Plt 219(JUN 16)210(JUN 16)188(JUN 15)238(JUN 14) Na 144(JUN 16)145(JUN 15)142(JUN 14) K 3.8(JUN 16)3.6(JUN 15)4.1(JUN 14) CO2 26(JUN 16)L 22(JUN 15)L 23(JUN 14) Cl H 112(JUN 16)H 115(JUN 15)H 111(JUN 14) Cr 0.63(JUN 16)0.58(JUN 15)0.63(JUN 14) BUN 20(JUN 16)H 32(JUN 15)H 34(JUN 14) Glucose Random 87(JUN 16)90(JUN 15)H 102(JUN 14) Mg 2.0(JUN 15) Phos 2.5(JUN 15) Ca L 7.8(JUN 16)L 8.0(JUN 15)L 8.3(JUN 14) PT 12.8(JUN 14) INR 0.94(JUN 14) PTT 26.1(JUN 14) Troponin <0.02(JUN 14)
--- OUTSIDE RECORDS SUMMARY | 2018-07-02 05:15 | XMS REPORT ---
Author Author Denzel Holcomb [facility] eClinicalWorks Address Unknown Phone Unavailable Care Team Providers Care Books Salesperson Name Role Phone Denzel Holcomb CP Unavailable Allergies, Adverse Reactions, Alerts Substance Reaction Event Type penicillin Info Not Available Drug Allergy Problems Problem Type Condition Code Onset Dates Condition Status Assessment Kidney stone N20.0 Active Problem Essential (primary) hypertension I10 Active Assessment Essential (primary) hypertension I10 Active Assessment Hydronephrosis concurrent with and due to calculi of kidney and ureter N13.2 Active Assessment Chronic allergic rhinitis, unspecified seasonality, unspecified trigger J30.9 Active Problem Kidney stone N20.0 Active Problem Hypertensive urgency I16.0 Active Problem Hydronephrosis concurrent with and due to calculi of kidney and ureter N13.2 Active Problem PUD (peptic ulcer disease) K27.9 Active Problem Abdominal aortic aneurysm without rupture I71.4 Active Problem Acute left-sided low back pain with left-sided sciatica M54.42 Active Problem Chronic allergic rhinitis, unspecified seasonality, unspecified trigger J30.9 Active Medications Medication Code System Code Instructions Start Date End Date Status Dosage Tylenol/Codeine #3 [facility] 15152967124 300-30 MG Orally every 6 hrs December 30, 2017 Active 1 tablet as needed Lisinopril-Hydrochlorothiazide [facility] 41811916108 10-12.5 MG Orally Once a day February 10, 2017 Active 1 tablet Hemocyte [facility] 41867170220 324 (106 Fe) MG Orally daily Active 1 capsule Prevacid [facility] 71185634545 30 MG Orally twice a day (bid) Jun 30, 2017 Active 1 capsule Lisinopril-Hydrochlorothiazide [facility] 33953219305 20-25 MG Orally Once a day January 13, 2018 Active 1 tablet Flonase [facility] [address]-09 50 MCG/DOSE Nasally Once a day Jun 26, 2017 Active 1 spray in each nostril Vital Signs Date/Time: May 14, 2018 BMI 24.08 Index Weight 123.3 lbs Height 60 in Temperature 97.9 F Cardiac Monitoring Heart Rate 75 /min Blood Pressure Diastolic 75 mm Hg Blood Pressure Systolic 131 mm Hg Results No Known Results Summary Purpose eClinicalWorks Submission
--- NOTE | 2018-07-02 06:51 | Diagnostic Imaging Report ---
EXAM: ABDOMEN-1VIEW (KUB) DATE: 07/02/2018 5:46 AM Time stamp on exam: 0604 exam INDICATION: Presurgical assessment COMPARISON: None FINDINGS: LINES/TUBES: None BOWEL PATTERN: No evidence for obstruction. SOFT TISSUES: Large 2.8 cm calcific opacity overlying the left renal pelvis. Additional small calcifications are overlying the bilateral renal collecting systems ranging between 2 and 3 mm in diameter LUNG BASES: Lung bases are clear. BONES: No acute findings. Degenerative changes of the bilateral SI joints IMPRESSION: Bilateral small nephrolithiasis and large 2.8 cm the left renal pelvis stone. CT of the abdomen stone protocol is recommended for better assessment of stone burden Signed by: Dr. Vikash Oshea M.D. on 07/02/2018 6:48 AM
[2018-07-02 08:43] VITALS: BP 139/82
--- NOTE | 2018-07-03 11:45 | Operative Report ---
DATE OF PROCEDURE: July 02, 2018 PREOPERATIVE DIAGNOSIS: A 2.2-cm left kidney stone. POSTOPERATIVE DIAGNOSIS: A 2.2-cm left kidney stone with hydronephrosis and urethral stricture disease. PROCEDURES 1. Cystourethroscopy with calibration and dilation of urethral stricture (separate procedure for female urethral stricture disease). 2. Cystourethroscopy with insertion of left indwelling ureteral stent (entire separate procedure for left hydronephrosis). 3. Staged shock-wave lithotripsy, left side (entire separate procedure for a pretty large left partial staghorn). 4. Supervision of fluoroscopy. 5. Interpretation of retrograde pyelography. ANESTHESIA: General. ESTIMATED BLOOD LOSS: Minimal. COMPLICATIONS: None. INDICATIONS: Ms. Richmond is a 62-year-old female patient with a very large 2.2 x 2.5 cm left partial staghorn stump. She and I had a long discussion in regard to the alternatives, the risks, and the benefits including doing nothing, shockwave lithotripsy, ureteroscopy, percutaneous surgery, or open surgery. She voiced understanding of the options, of the alternatives, of the risks and the benefits, and she elected to proceed. PROCEDURE IN DETAIL: After informed consent was obtained, the patient was taken to the operative suite and placed supine on the operating table and underwent general anesthesia by the anesthesia service. Placed in the dorsal lithotomy position and sterilely prepped and draped in the standard fashion for cystoscopy. Attempts made to catheterize the urethra has failed. The urethra was calibrated to 12-[place], dilated to 24-[place]. A 22.5 [place] cystoscope was inserted per urethra. Panendoscopy of the bladder revealed a moderate degree of trabeculations. No tumors and no stones. A retrograde pyelogram performed on the left side revealed hydronephrosis. Left ureteral stent was deployed along the stump. The stone was localized in the leading edge. Total of 3000 shocks at a maximum power setting of 6 was delivered to the stone. Fragmentation was seen on that leading edge. Bladder was drained. The patient was awakened from anesthesia and transported to the recovery room in excellent condition. SUPERVISION OF FLUOROSCOPY AND INTERPRETATION OF RETROGRADE PYELOGRAPHY: I was present throughout the entire procedure and supervised the use of fluoroscopy. There was no radiologist present. Attention was turned toward the left ureteral orifice. It was catheterized and retrograde pyelogram was performed, revealing a massive left partial staghorn. Stent was in adequate position. Job#: [id number]
== END | disposition home or self-care (01) ==
LOC: OR 05:11
PROVIDERS: ATTEND Urology
DX: N13.2 Hydronephrosis with renal and ureteral calculous obstruction (principal); N35.92 Unspecified urethral stricture, female; N32.89 Other specified disorders of bladder; N39.0 Urinary tract infection, site not specified; I10 Essential (primary) hypertension; K25.9 Gastric ulcer, unspecified as acute or chronic, without hemorrhage or perforation; Z88.0 Allergy status to penicillin; Z01.810 Encounter for preprocedural cardiovascular examination; Z01.812 Encounter for preprocedural laboratory examination; Z84.1 Family history of disorders of kidney and ureter
CPT/HCPCS: 36415; 50590; 52332; 74018; 80048; 93005; C2617; J0696; J1100; J2001; J2250; J2405; Q9967

== ENCOUNTER → 2018-08-18 | Day surgery (SDC) | payer OTHER ==
[2018-08-17 15:05] LABS: ANION GAP 15.5 mmol/L (8-16); BLOOD UREA NITROGEN 22 mg/dL (7-26); BUN/CREATININE RATIO 28 (6-25); CALCIUM 10.6 mg/dL (8.4-10.2); CARBON DIOXIDE 23 mmol/L (22-29); CHLORIDE 107 mmol/L (98-107); CREATININE, SERUM 0.78 mg/dL (0.57-1.11); EST GLOMERULAR FILTRATION RATE > 60 ML/MIN (60-); GLUCOSE 95 mg/dL (74-118); POTASSIUM 4.5 mmol/L (3.5-5.1); SODIUM 141 mmol/L (136-145)
[~2018-08-18] MED LIST changes: +ACETAMINOPHEN 1000 MG/100 ML IV ONE; -FENTANYL CITRATE/PF 100MCG/2 ML INJ ONE; +PHENYLEPHRINE HCL 1% 10 MG/ML VIAL ONE
--- OUTSIDE RECORDS SUMMARY | 2018-08-18 05:33 | XMS REPORT | Continuity of Care Document ---
Author Author [facility] Interface Address Unknown Phone Unavailable Problems Problem Status Onset Date Classification Date Reported Comments Source Escherichia coli<sup>1, 2</sup> Active 06/14/2017 Problem 06/19/2017 Problem added by Discern Expert. [facility] EPIGASTRIC ABDOMINAL PIAN, ACUTE BLOOD L Active 06/14/2017 [facility] DIFFICULTY BREATHING Active 06/14/2017 [facility] Encounter for general adult medical examination with abnormal findings Active Diagnosis 02/17/2017 [id number] Essential hypertension Active Problem 05/29/2018 2.16.840.1.316492.4.391.11.86504Jonathan Body mass index of 23.0 to 23.9 in adult Active Diagnosis 02/17/2017 [id number] Chronic allergic rhinitis, unspecified seasonality, unspecified trigger Active Diagnosis 05/29/2018 [id number] Abdominal aortic aneurysm without rupture Active Problem 05/29/2018 2.16.840.1.952515.4.391.11.15255 PUD Active Problem 05/29/2018 2.16.840.1.763124.4.391.11.89603 Acute left-sided low back pain with left-sided sciatica Active Problem 05/29/2018 2.16.840.1.070987.4.391.11.21809 Hypertensive urgency Active Problem 05/29/2018 2.16.840.1.188290.4.391.11.35239 Kidney stone Active Diagnosis 05/29/2018 2.16.840.1.295753.4.391.11.34653 Helicobacter pylori Active Diagnosis 07/08/2017 2.16.840.1.854588.4.391.11.02283 UGI bleed Active Diagnosis 07/08/2017 2.16.840.1.644774.4.391.11.32389 Hydronephrosis concurrent with and due to calculi of kidney and ureter Active Diagnosis 05/29/2018 [id number] Carpal tunnel syndrome, left Active Problem 10/14/2016 Jonathan Vazquez Body mass index 22.0-22.9, adult Active Diagnosis 10/14/2016 Jonathan Vazquez Cervicalgia Active Diagnosis 10/14/2016 Jonathan Vazquez Hypertension Resolved Problem 06/19/2017 [facility] Peptic ulcer Resolved Problem 06/19/2017 [facility] EPIGASTRIC PAIN Active [facility] ACUTE POSTHEMORRHAGIC ANEMIA Active [facility] Medications Medication Details Route Status Patient Instructions Ordering Provider Order Date Source Lisinopril-Hydrochlorothiazide 1 tablet Orally Active 20-25 MG Orally Once a day Zhang 01/13/2018 [id number] Spuomjf-Ypvisb-Kaubd Pertussis as directed Intramuscular Active 5-2.5-18.5 LF-MCG/0.5 Intramuscular as directed Zhang 01/13/2018 2.16.840.1.663614.4.391.11.26228 Tylenol/Codeine #3 1 tablet as needed Orally Active 300-30 MG Orally every 6 hrs Zhang 12/30/2017 2.16.840.1.534848.4.391.11.78767 Cipro 1 tablet Orally Active 500 mg Orally Once a day Zhang 12/30/2017 2.16.840.1.870610.4.391.11.50127 Prevacid 1 capsule Orally Active 30 MG Orally twice a day (bid) Zhang 06/30/2017 2.16.840.1.524437.4.391.11.61784 Amoxicillin 2 tablets Orally Active 500 MG Orally every 12 hrs Zhang 06/30/2017 2.16.840.1.514698.4.391.11.93767 Biaxin 1 tablet Orally Active 500 MG Orally every 12 hrs Zhang 06/30/2017 2.16.840.1.152591.4.391.11.35889 Prevacid 1 capsule Orally Active 30 MG Orally twice a day (bid) Zhang 06/30/2017 2.16.840.1.732023.4.391..82708 Prevpac as directed Orally Active - Orally as directed Zhang 06/26/2017 2.16.840.1.642128.4.391..48538 Flonase 1 spray in each nostril Nasally Active 50 MCG/DOSE Nasally Once a day Zhang 06/26/2017 2.16.840.1.853752.4.391..14196 Flonase 1 spray in each nostril Nasally Active 50 MCG/DOSE Nasally Once a day Zhang 06/26/2017 2.16.840.1.575691.4.391..26124 Claritin 1 tablet Orally Active 10 MG Orally Once a day Zhang 06/26/2017 [id number]..15918 Ciprofloxacin 500 MG Oral Tablet [Cipro] 500 mg=1 tab, PO, Q12H, X 10 day, # 20 tab, 0 Refill(s), Pharmacy: [facility] [id number] Active 06/16/2017 [facility] Copper Sulfate 0.8 MG / Ferrous fumarate 324 MG / Folic Acid 1 MG / Magnesium Sulfate 6.9 MG / manganese sulfate 1.3 MG / Niacinamide 30 MG / Pantothenic Acid 10 MG / pyridoxine 5 MG / Riboflavin 6 MG / Sodium Ascorbate 200 MG / Thiamine 10 MG / Vitamin B 1 cap, PO, Daily, # 30 cap, 3 Refill(s), Pharmacy: [facility] [phone] Active 06/16/2017 [facility] influenza virus vaccine, inactivated 0.5 mL, Route: IM, Drug Form: SUSP, Daily, Start date: 06/15/17 16:00:00 CDT, Duration: 1 doses or times, Stop date: 06/15/17 16:00:00 CDTNotes: (Same as: Fluzone Quadrivalent, Fluarix Quadrivalent) For 3 years of age and older (0.5 mL IM) Shake well before use Inactive 06/15/2017 [facility] Sucralfate 1000 MG Oral Tablet [Carafate] 1 gm=1 tab, PO, QID-Before Meals, # 120 tab, 0 Refill(s), Pharmacy: [facility] [id number] Active 06/15/2017 [facility] pantoprazole 40 MG Enteric Coated Tablet [Protonix] 40 mg=1 tab, PO, BID, # 120 tab, 1 Refill(s), Pharmacy: [facility] [id number] Active 06/15/2017 [facility] Omnipaque 300 50 ml, Route: PO, Drug Form: SOLN, Dosing Weight 55.483, kg, ONCE, Start date: 06/15/17 11:41:00 CDT, Stop date: 06/15/17 11:41:00 CDTNotes: (Same as:Omnipaque 300). WASTE: F/P - Black; E - Next One's On Me (NOOM) Bin Inactive 06/15/2017 [facility] Levaquin 500 mg, 2 tab, Route: PO, Drug form: TAB, [id number], Dosing Weight 55.483, kg, Start date: 06/15/17 11:00:00 CDT, Duration: 3 day, Stop date: 06/17/17 11:00:00 CDT, ABX Indication: Urinary Tract InfectionNotes: Do not give w/antacids, dairy pdt & minerals Take 1 hr before or 2 hr after dairy pdt (Same as:Levaquin) No Longer Active 06/15/2017 [facility] Sodium Chloride 0.9% IV 1000 mL 1,000 mL, Rate: 25 ml/hr, Infuse over: 40 hr, Route: IV, Dosing Weight 55.483 kg, Total Volume: 1,000, Start date: 06/15/17 10:04:00 CDT, Duration: 30 day, Stop date: 07/15/17 10:03:00 CDT Inactive 06/15/2017 [facility] influenza virus vaccine, inactivated 0.5 mL, Route: IM, Drug Form: SUSP, Daily, Start date: 06/15/17 9:00:00 CDT, Duration: 1 doses or times, Stop date: 06/15/17 9:00:00 CDTNotes: (Same as: Fluzone Quadrivalent, Fluarix Quadrivalent) For 3 years of age and older (0.5 mL IM) Shake well before use Inactive 06/15/2017 [facility] Saline Flush 0.9% 10 ml, Route: IVP, Drug Form: INJ, Dosing Weight 56.818, kg, PRN, PRN Line Flush, Start date: 06/14/17 20:58:00 CDT, Duration: 30 day, Stop date: 07/14/17 20:57:00 CDTNotes: (Same as: BD Posiflush) No Longer Active 06/15/2017 [facility] sodium chloride 0.9% 1000 ml INJ 1,000 mL 1,000 mL, Rate: 125 ml/hr, Infuse over: 8 hr, Route: IV, Dosing Weight 56.818 kg, Total Volume: 1,000, Start date: 06/14/17 20:58:00 CDT, Duration: 30 day, Stop date: 07/14/17 20:57:00 CDT No Longer Active 06/15/2017 [facility] Morphine 2 mg, 1 mL, Route: IVP, Drug form: SOLN, Q4H, Dosing Weight 56.818, kg, PRN Pain Score 7-10, Start date: 06/14/17 20:58:00 CDT, Duration: 30 day, Stop date: 07/14/17 20:57:00 CDT No Longer Active 06/15/2017 [facility] Ondansetron 4 mg, 2 mL, Route: IVP, Drug form: INJ, Q6H, Dosing Weight 56.818, kg, PRN Nausea & Vomiting, Start date: 06/14/17 20:58:00 CDT, Duration: 30 day, Stop date: 07/14/17 20:57:00 CDTNotes: (Same as: Zofran) MEDICATION WASTE Product Size: 4 mg Product Wasted: ___ mg No Longer Active 06/15/2017 [facility] Hydralazine 10 mg, 0.5 mL, Route: IVP, Drug form: INJ, Q4H, Dosing Weight 56.818, kg, PRN Elevated BP, if SBP>150, Start date: 06/14/17 19:16:00 CDT, Duration: 30 day, Stop date: 07/14/17 19:15:00 CDTNotes: (Same as: Apresoline) Push over 5 minutes No Longer Active 06/15/2017 [facility] Benadryl 25 mg, 0.5 mL, Route: IVP, Drug form: INJ, TID, Dosing Weight 56.818, kg, PRN as needed for itching, Start date: 06/14/17 19:16:00 CDT, Duration: 30 day, Stop date: 07/14/17 19:15:00 CDTNotes: (Same as: Benadryl) No Longer Active 06/15/2017 [facility] Simethicone 160 mg, 2 tab, Route: CHEW, Drug form: CHEWTAB, TID, Dosing Weight 56.818, kg, PRN as needed for gas, Start date: 06/14/17 19:16:00 CDT, Duration: 30 day, Stop date: 07/14/17 19:15:00 CDTNotes: (Same as: Mylicon) No Longer Active 06/15/2017 [facility] Tums 1,500 mg, 3 tab, Route: CHEW, Drug form: CHEWTAB, TID, Dosing Weight 56.818, kg, PRN as needed for dyspepsia, Start date: 06/14/17 19:16:00 CDT, Duration: 30 day, Stop date: 07/14/17 19:15:00 CDTNotes: (Same As: Tums) Calcium Carbonate 500 yj=397 mg elemental calcium Dose= mg calcium carbonate ( mg elemental calcium) No Longer Active 06/15/2017 [facility] Morphine 2 mg, 1 mL, Route: IVP, Drug form: SOLN, Q4H, Dosing Weight 56.818, kg, PRN Pain Score 7-10, Start date: 06/14/17 19:16:00 CDT, Duration: 30 day, Stop date: 07/14/17 19:15:00 CDT Inactive 06/15/2017 [facility] Ondansetron 4 mg, 2 mL, Route: IVP, Drug form: INJ, Q6H, Dosing Weight 56.818, kg, PRN Nausea & Vomiting, Start date: 06/14/17 19:16:00 CDT, Duration: 30 day, Stop date: 07/14/17 19:15:00 CDTNotes: (Same as: Luis Antonio) MEDICATION WASTE Product Size: 4 mg Product Wasted: ___ mg Inactive 06/15/2017 [facility] Docusate 100 mg, 1 cap, Route: PO, Drug form: CAP, BID, Dosing Weight 56.818, kg, PRN as needed for constipation, Start date: 06/14/17 19:16:00 CDT, Duration: 30 day, Stop date: 07/14/17 19:15:00 CDTNotes: (Same as: Colace) (Do Not Crush) No Longer Active 06/15/2017 [facility] Acetaminophen 650 mg, 2 tab, Route: PO, Drug form: TAB, Q4H, Dosing Weight 56.818, kg, PRN Pain 1-3/Temp > 100.4 F, Start date: 06/14/17 19:16:00 CDT, Duration: 30 day, Stop date: 07/14/17 19:15:00 CDTNotes: Do not exceed 4 gm/day. (Same as: Tylenol) No Longer Active 06/15/2017 [facility] Acetaminophen 325 MG / Hydrocodone Bitartrate 5 MG Oral Tablet 1 tab, Route: PO, Drug Form: TAB, Dosing Weight 56.818, kg, Q4H, PRN Pain Score 4-6, Start date: 06/14/17 19:16:00 CDT, Duration: 30 day, Stop date: 07/14/17 19:15:00 CDTNotes: (Same as: [place] 325/5) Do not exceed 4gm/day of acetaminophen. No Longer Active 06/15/2017 [facility] Saline Flush 0.9% 10 ml, Route: IVP, Drug Form: INJ, Dosing Weight 56.818, kg, PRN, PRN Line Flush, Start date: 06/14/17 19:15:00 CDT, Duration: 30 day, Stop date: 07/14/17 19:14:00 CDTNotes: (Same as: BD Posiflush) No Longer Active 06/15/2017 [facility] sodium chloride 0.9% 1000 ml INJ 1,000 mL 1,000 mL, Rate: 75 ml/hr, Infuse over: 13.3 hr, Route: IV, Dosing Weight 56.818 kg, Total Volume: 1,000, Start date: 06/14/17 19:15:00 CDT, Duration: 30 day, Stop date: 07/14/17 19:14:00 CDT Inactive 06/15/2017 [facility] Ondansetron 4 mg, 2 mL, Route: IVP, Drug form: INJ, Q4H, Dosing Weight 56.818, kg, PRN Nausea & Vomiting, Start date: 06/14/17 19:15:00 CDT, Duration: 30 day, Stop date: 07/14/17 19:14:00 CDTNotes: (Same as: Luis Antonio) MEDICATION WASTE Product Size: 4 mg Product Wasted: ___ mg Inactive 06/15/2017 [facility] UNKNOWN BP UNKNOWN BP, 30 mg=, PO, Daily, PRN Hypertension, Refill(s) 0 No Longer Active 06/14/2017 [facility] Esomeprazole 20 MG Enteric Coated Capsule [Nexium] 20 mg=1 cap, PO, Daily, 0 Refill(s) No Longer Active 06/14/2017 [facility] pantoprazole 80 mg + sodium chloride 0.9% 100 mL INJ (for IV set) 100 mL 100 mL, Rate: 10 ml/hr, Infuse over: 10 hr, Route: IV, Dosing Weight 56.818 kg, Total Volume: 100, Start date: 06/14/17 17:43:00 CDT, Duration: 72 hr, Stop date: 06/23/17 17:42:00 CDTNotes: infuse at 8 mg/hr (10 ml/hr) for 72 hrs for GI bleed No Longer Active 06/14/2017 [facility] Sodium Chloride 0.9% IV 250 mL + esomeprazole 80 mg 250 mL, Rate: 25 ml/hr, Infuse over: 10 hr, Route: IV, Dosing Weight 56.818 kg, Total Volume: 250, Start date: 06/14/17 17:35:00 CDT, Duration: 72 hr, Stop date: 06/17/17 17:34:00 CDT Inactive 06/14/2017 [facility] sodium chloride 0.9% INJ 250 mL 250 mL, Rate: [employer] for use with blood product administration., Dosing Weight 56.818, kg, Route: IV, Total Volume: 250, Priority: Routine, Start Date: 06/14/17 17:26:00 CDT, Duration: 1 day, Stop date: 06/15/17 17:25:00 CDT, Replace Every: 24 hr No Longer Active 06/14/2017 [facility] sodium chloride 0.9% INJ 250 mL 250 mL, Rate: Seasonal [employer]iter for use with blood product administration., Dosing Weight 56.818, kg, Route: IV, Total Volume: 250, Priority: Routine, Start Date: 06/14/17 16:19:00 CDT, Duration: 1 day, Stop date: 06/15/17 16:18:00 CDT, Replace Every: 24 hr No Longer Active 06/14/2017 [facility] Saline Flush 0.9% 10 mL, Route: IVP, Drug Form: INJ, Dosing Weight 56.818, kg, PRN, PRN Line Flush, Start date: 06/14/17 16:19:00 CDT, Duration: 30 day, Stop date: 07/14/17 16:18:00 CDTNotes: preservative free. No Longer Active 06/14/2017 [facility] Caltrate 600+D 1 tablet with a meal Orally Active 600-800 MG- UNIT Orally twice a day (bid) Zhang 04/17/2017 [id number] Lisinopril-Hydrochlorothiazide 1 tablet Orally Active 10-12.5 MG Orally Once a day Zhang 02/10/2017 2.16.840.1.739579.4.391.11.26631 Lisinopril-Hydrochlorothiazide 1 tablet Orally Active 10-12.5 MG Orally Once a day Zhang 02/10/2017 [id number] Meloxicam 1 tablet Orally Active 7.5 MG Orally Once a day [facility] 10/08/2016 [facility] Losartan Potassium-HCTZ 1 tablet Orally Active 100-12.5 MG Orally Once a day [facility] 10/08/2016 [facility] Hemocyte 1 capsule Orally Active 324 (106 Fe) MG Orally daily Zhang 2.840.1.305378.4.391.11.44136 Hemocyte 1 capsule Orally Active 324 (106 Fe) MG Orally daily Zhang 2.840.1.736853.4.391.11.08326 Allergies, Adverse Reactions, Alerts Substance Category Reaction Severity Reaction type Status Date Reported Comments Source Peniciline Adverse Reaction rash Adverse Reaction Active 10/08/2016 Jonathan Vazquez penicillin Adverse Reaction Info Not Available Adverse Reaction Active 05/14/2018 [id number] Immunizations Immunization Date Given Site Status Last Updated Comments Source influenza virus vaccine, inactivated 06/15/2017 Left deltoid completed [facility] Results Order Name Results Value Reference Range Date Interpretation Comments Source HEMATOLOGY MCHC 33.2 g/dL 32.0 - 36.0 06/16/2017 [facility] HEMATOLOGY MPV 7.3 fL 7.4 - 10.4 06/16/2017 [facility] HEMATOLOGY MCV 75.9 fL 80.0 - 98.0 06/16/2017 [facility] HEMATOLOGY Hgb 8.6 g/dL 12.0 - 16.0 06/16/2017 [facility] HEMATOLOGY RBC 3.43 M/CMM 4.20 - 5.40 06/16/2017 [facility] HEMATOLOGY Platelet 219 K/CMM 133 - 450 06/16/2017 [facility] HEMATOLOGY RDW 20.9 % 11.5 - 14.5 06/16/2017 [facility] Hct 26.0 % 36.0 - 48.0 06/16/2017 [facility] MCH 25.2 pg 27.0 - 31.0 06/16/2017 [facility] WBC 7.4 K/CMM 3.7 - 10.4 06/16/2017 [facility] BLOOD BANK RESULTS RBC product Product available 1 (06/16/17 7:37 AM) 06/16/2017 Result Comment: 06/16/2017 07:57 [id number] notified FLY philip 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 [facility] CHEM PANEL BUN 20 mg/dL 7 - 22 06/16/2017 [facility] CHEM PANEL Sodium Lvl 144 meq/L 135 - 145 06/16/2017 [facility] CHEM PANEL Creatinine Lvl 0.63 mg/dL 0.50 - 1.40 06/16/2017 [facility] CHEM PANEL Glucose Lvl 87 mg/dL 70 - 99 06/16/2017 [facility] CHEM PANEL AGAP 9.8 meq/L 10.0 - 20.0 06/16/2017 [facility] CHEM PANEL CO2 26 meq/L 24 - 32 06/16/2017 [facility] CHEM PANEL Calcium Lvl 7.8 mg/dL 8.5 - 10.5 06/16/2017 [facility] CHEM PANEL Chloride Lvl 112 meq/L 95 - 109 06/16/2017 [facility] CHEM PANEL Potassium Lvl 3.8 meq/L 3.5 - 5.1 06/16/2017 [facility] CHEM PANEL eGFR 96 mL/min/1.73m2 06/16/2017 Result [...] should be multiplied by the estimated BMI. [facility] Platelet 210 K/CMM 133 - 450 06/16/2017 [facility] MPV 7.6 fL 7.4 - 10.4 06/16/2017 [facility] MCHC 32.4 g/dL 32.0 - 36.0 06/16/2017 [facility] RDW 21.2 % 11.5 - 14.5 06/16/2017 [facility] MCH 23.9 pg 27.0 - 31.0 06/16/2017 [facility] MCV 73.9 fL 80.0 - 98.0 06/16/2017 [facility] WBC 7.3 K/CMM 3.7 - 10.4 06/16/2017 [facility] RBC 3.04 M/CMM 4.20 - 5.40 06/16/2017 [facility] Hct 22.4 % 36.0 - 48.0 06/16/2017 [facility] Hgb 7.3 g/dL 12.0 - 16.0 06/16/2017 [facility] Eosinophils 3.3 % 0.0 - 4.0 06/16/2017 [facility] Basophils 0.6 % 0.0 - 1.0 06/16/2017 [facility] Segs-Bands # 3.9 K/CMM 1.5 - 8.1 06/16/2017 [facility] Lymphocytes # 2.5 K/CMM 1.0 - 5.5 06/16/2017 [facility] Monocytes # 0.6 K/CMM 0.0 - 0.8 06/16/2017 [facility] Microcyte 1+ *ABN* (06/16/17 5:50 AM) None Seen 06/16/2017 [facility] Eosinophils # 0.2 K/CMM 0.0 - 0.5 06/16/2017 [facility] Segs 54.0 % 45.0 - 75.0 06/16/2017 [facility] Lymphocytes 34.2 % 20.0 - 40.0 06/16/2017 [facility] Monocytes 7.9 % 2.0 - 12.0 06/16/2017 [facility] Hct 24.3 % 36.0 - 48.0 06/15/2017 [facility] Hgb 7.9 g/dL 12.0 - 16.0 06/15/2017 [facility] URINE AND STOOL Occult Bld Stl Positive *ABN* (06/15/17 10:01 AM) Negative 06/15/2017 [facility] Abdomen/Pelvis wo IV contrast CT Abdomen/Pelvis wo IV contrast CT Patient Name: VADIM ALVES : 1955; Age: 61 years Female MR: [id number] Study: Abdomen/Pelvis wo IV contrast CT 06/15/2017 [...] additional nonobstructive calculi within both kidneys. SL: [id number] 06/15/2017 - - Read by: Rick Dimas [...] ALT 16 unit/L 0 - 65 06/15/2017 [facility] CHEM PANEL AST 16 unit/L 0 - 37 06/15/2017 [facility] CHEM PANEL eGFR 99 mL/min/1.73m2 06/15/2017 Result [...] should be multiplied by the estimated BMI. [facility] CHEM PANEL Glucose Lvl 90 mg/dL 70 - 99 06/15/2017 [facility] CHEM PANEL BUN 32 mg/dL 7 - 22 06/15/2017 [facility] CHEM PANEL Magnesium Lvl 2.0 mg/dL 1.8 - 2.4 06/15/2017 [facility] CHEM PANEL Phosphorus 2.5 mg/dL 2.5 - 4.5 06/15/2017 [facility] Microcyte 1+ *ABN* (06/15/17 6:47 AM) None Seen 06/15/2017 [facility] Segs-Bands # 3.9 K/CMM 1.5 - 8.1 06/15/2017 [facility] Lymphocytes # 2.6 K/CMM 1.0 - 5.5 06/15/2017 [facility] HEMATOLOGY Monocytes 7.6 % 2.0 - 12.0 06/15/2017 [facility] HEMATOLOGY Basophils 0.5 % 0.0 - 1.0 06/15/2017 [facility] HEMATOLOGY Eosinophils 1.8 % 0.0 - 4.0 06/15/2017 [facility] Lymphocytes 35.9 % 20.0 - 40.0 06/15/2017 [facility] Eosinophils # 0.1 K/CMM 0.0 - 0.5 06/15/2017 [facility] Monocytes # 0.5 K/CMM 0.0 - 0.8 06/15/2017 [facility] HEMATOLOGY Segs 54.2 % 45.0 - 75.0 06/15/2017 [facility] HEMATOLOGY MPV 7.6 fL 7.4 - 10.4 06/15/2017 [facility] HEMATOLOGY RDW 20.8 % 11.5 - 14.5 06/15/2017 [facility] HEMATOLOGY MCHC 32.9 g/dL 32.0 - 36.0 06/15/2017 [facility] HEMATOLOGY MCH 24.4 pg 27.0 - 31.0 06/15/2017 [facility] HEMATOLOGY MCV 74.3 fL 80.0 - 98.0 06/15/2017 [facility] HEMATOLOGY Platelet 188 K/CMM 133 - 450 06/15/2017 [facility] HEMATOLOGY RBC 3.20 M/CMM 4.20 - 5.40 06/15/2017 [facility] HEMATOLOGY WBC 7.2 K/CMM 3.7 - 10.4 [...] UA Protein Negative mg/dL Negative mg/dL 06/15/2017 [facility] URINE AND STOOL UA pH 6.0 5.0 - 8.0 06/15/2017 [facility] URINE AND STOOL UA Spec Grav 1.013 <=1.030 06/15/2017 [facility] BLOOD BANK RESULTS RBC product Product available 2 (06/14/17 5:26 PM) 06/14/2017 Result Comment: 06/14/2017 18:01 [id number] Called to Parul Nicholas at 06/14/2017 18:01 by Kan Villegas. [facility] BLOOD BANK RESULTS Antibody Scrn Negative (06/14/17 4:49 PM) 06/14/2017 [facility] BLOOD BANK RESULTS ABO/Rh O POS 06/14/2017 [facility] CARDIAC ENZYMES Troponin-I null 0.00 - 0.40 06/14/2017 [facility] CHEM PANEL A/G Ratio 0.8 0.7 - 1.6 06/14/2017 [facility] CHEM PANEL B/C Ratio 54 6 - 25 06/14/2017 [facility] CHEM PANEL Globulin 3.6 g/dL 2.7 - 4.2 06/14/2017 [facility] CHEM PANEL AGAP 12.1 meq/L 10.0 - 20.0 06/14/2017 [facility] CHEM PANEL eGFR 96 mL/min/1.73m2 06/14/2017 Result [...] should be multiplied by the estimated BMI. [facility] CHEM PANEL Bili Total 0.2 mg/dL 0.2 - 1.3 06/14/2017 [facility] CHEM PANEL Alk Phos 80 unit/L 39 [...] Lvl 0.63 mg/dL 0.50 - 1.40 06/14/2017 [facility] HEMATOLOGY Plt Morph Normal (06/14/17 4:49 PM) 06/14/2017 [facility] HEMATOLOGY Segs 69.6 % 45.0 - 75.0 06/14/2017 [facility] HEMATOLOGY Microcyte 2+ *ABN* (06/14/17 4:49 PM) None Seen 06/14/2017 [facility] HEMATOLOGY Basophils # 0.1 K/CMM 0.0 - 0.2 06/14/2017 [facility] HEMATOLOGY Segs-Bands # 6.1 K/CMM 1.5 - 8.1 06/14/2017 [facility] HEMATOLOGY Monocytes # 0.5 K/CMM 0.0 - 0.8 06/14/2017 [facility] HEMATOLOGY Lymphocytes # 2.1 K/CMM 1.0 - 5.5 06/14/2017 [facility] HEMATOLOGY Basophils 0.7 % 0.0 - 1.0 06/14/2017 [facility] HEMATOLOGY Eosinophils 0.5 % 0.0 - 4.0 06/14/2017 [facility] HEMATOLOGY Monocytes 5.5 % 2.0 - 12.0 06/14/2017 [facility] HEMATOLOGY Lymphocytes 23.7 % 20.0 - 40.0 06/14/2017 [facility] HEMATOLOGY PT 12.8 s 12.0 - 14.7 06/14/2017 [facility] HEMATOLOGY INR 0.94 0.85 - 1.17 06/14/2017 [facility] HEMATOLOGY PTT 26.1 s 22.9 - 35.8 06/14/2017 [facility] Vital Signs Vital Sign Value Date Comments Source Weight 123.3 05/14/2018 [id number] Height 60 05/14/2018 2.16.840.1.931047.4.391.11.89881 Temperature Oral (F) 97.9 F 05/14/2018 2.16.840.1.192214.4.391.11.88572 Heart Rate 75 05/14/2018 2.16.840.1.626964.4.391.11.73398 Diastolic (mm Hg) 75 05/14/2018 2.16.840.1.912600.4.391.11.06069 Systolic (mm Hg) 131 05/14/2018 2.16.840.1.181352.4.391.11.45865 Weight 123.6 01/13/2018 2.16.840.1.704741.4.391.11.18853 Height 60.0 01/13/2018 2.16.840.1.684370.4.391.11.42319 Temperature Oral (F) 98.4 F 01/13/2018 2.16.840.1.450677.4.391.11.82354 Heart Rate 73 01/13/2018 2.16.840.1.717540.4.391.11.54503 Diastolic (mm Hg) 80 01/13/2018 2.16.840.1.802938.4.391.11.43712 Systolic (mm Hg) 145 01/13/2018 2.16.840.1.203294.4.391.11.73118 Weight 123.8 12/30/2017 2.16.840.1.592392.4.391.11.51666 Height 60.0 12/30/2017 2.16.840.1.915048.4.391.11.28306 Temperature Oral (F) 98.4 F 12/30/2017 2.16.840.1.029788.4.391.11.77117 Heart Rate 74 12/30/2017 2.16.840.1.723771.4.391.11.23985 Diastolic (mm Hg) 100 12/30/2017 2.16.840.1.400149.4.391.11.42592 Systolic (mm Hg) 190 12/30/2017 2.16.840.1.974655.4.391.11.49405 Weight 119.6 06/26/2017 2.16.840.1.078785.4.391.11.65115 Height 60.0 06/26/2017 2.16.840.1.317185.4.391.11.00232 Temperature Oral (F) 98.3 F 06/26/2017 2.16.840.1.948205.4.391.11.29425 Heart Rate 76 06/26/2017 2.16.840.1.984957.4.391.11.76916 Diastolic (mm Hg) 109 06/26/2017 2.16.840.1.729199.4.391.11.45762 Systolic (mm Hg) 190 06/26/2017 2.16.840.1.643792.4.391.11.51295 Systolic (mm Hg) 147 06/16/2017 [facility] Diastolic (mm Hg) 82 06/16/2017 [facility] Temperature Oral (F) 98.4 F 06/16/2017 [facility] Heart Rate 83 06/16/2017 [facility] Respitory Rate 16 06/16/2017 [facility] Systolic (mm Hg) 157 06/16/2017 [facility] Diastolic (mm Hg) 87 06/16/2017 [facility] Respitory Rate 18 06/16/2017 [facility] Temperature Oral (F) 97.8 F 06/16/2017 [facility] Heart Rate 78 06/16/2017 [facility] Heart Rate 76 06/16/2017 [facility] Temperature Oral (F) 98.1 F 06/16/2017 [facility] Respitory Rate 18 06/16/2017 [facility] Systolic (mm Hg) 134 06/16/2017 [facility] Diastolic (mm Hg) 78 06/16/2017 [facility] Height 157.48 cm 06/15/2017 [facility] Weight 55.483 06/15/2017 [facility] BMI Calculated 22.37 06/15/2017 [facility] Weight 56.818 06/14/2017 [facility] BMI Calculated 22.91 06/14/2017 [facility] Height 157.48 cm 06/14/2017 [facility] Weight 120.7 02/10/2017 [id number] Height 60.0 02/10/2017 [id number] Temperature Oral (F) 98.0 F 02/10/2017 [id number] Heart Rate 80 02/10/2017 [id number] Diastolic (mm Hg) 94 02/10/2017 [id number] Systolic (mm Hg) 169 02/10/2017 [id number] Weight 118.2 10/08/2016 [facility] Height 60 10/08/2016 [facility] Heart Rate 75 10/08/2016 Jonathan Vazquez Diastolic (mm Hg) 91 10/08/2016 Jonathan Vazquez Systolic (mm Hg) 169 10/08/2016 Jonathan Vazquez Encounters Location Location Details Encounter Type Encounter Number Reason For Visit Attending Provider ADM Date DC Date Status Source Jonathan Vazquez MD PA Consult [id number] 10/08/2016 10/08/2016 Jonathan Vazquez [facility] Inpatient [id number] Denzel Zhang 06/14/2017 06/16/2017 [facility] Procedures Procedure Code Date Perfomer Comments Source Gallbladder stone removal [id number] [facility]
--- OUTSIDE RECORDS SUMMARY | 2018-08-18 05:34 | XMS REPORT ---
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 Allergies, Adverse Reactions, Alerts This patient has no known allergies or adverse reactions. Medications This patient has no known medications. Results Test Description Test Time Test Comments Text Results Atomic Results Result Comments ABDOMEN-1VIEW ([facility]) 2018-07-02 06:46:00 [place] [address] Patient Name: VADIM ALVES MR #: [id number] : 1955 Age/Sex: 62/F Req #: [id number] Adm Physician: Ordered by: BRAD WEI MD Report #: [id number] Location: OR Room/Bed: Procedure: [id number] DX/ABDOMEN-1VIEW ([facility]) Exam Date: 07/02/18 Exam Time: 0605 REPORT STATUS: Signed EXAM: ABDOMEN-1VIEW ([facility]) DATE: 07/02/2018 5:46 AM Time stamp on exam: 0604 exam INDICATION: Presurgical assessment COMPARISON: None FINDINGS: LINES/TUBES: None BOWEL PATTERN: No evidence for obstruction. SOFT TISSUES: Large 2.8 cm calcific opacity overlying the left renal pelvis. Additional small calcifications are overlying the bilateral renal collecting systems ranging between 2 and 3 mm in diameter LUNG BASES: Lung bases are clear. BONES: No acute findings. Degenerative changes of the bilateral SI joints IMPRESSION: Bilateral small nephrolithiasis and large 2.8 cm the left renal pelvis stone. CT of the abdomen stone protocol is recommended for better assessment of stone burden Signed by: Dr. Vikash Oshea M.D. on 07/02/2018 6:48 AM Dictated By: VIKASH TOSCANO MD 7 Transcribed By: GINGER on 07/02/18647 COPY TO: BRAD WEI MD
--- NOTE | 2018-08-18 06:34 | Diagnostic Imaging Report ---
ABDOMEN-1VIEW ([facility]) Clinical history: Preoperative, left external shockwave lithotripsy Technique: AP view abdomen Comparison: 07/02/2018 Findings: Abdomen: Nonobstructive bowel gas pattern. Kidneys: Stable punctate nonobstructing right nephrolithiasis. Left double-J ureteral stent in place. Interval decrease in left renal stone burden, the largest measuring 1.8 x 1.2 cm (prior 2.2 x 2.7 cm). Multiple stone fragments seen along the left proximal ureteral stent measuring 7-8 mm. Additional smaller stone fragment seen along the left distal ureter. Impression: Interval decrease in left renal stone burden with several stone fragments seen along the left ureteral stent. Signed by: Dr Brandie Franco MD on 08/18/2018 6:30 AM
--- NOTE | 2018-08-18 08:11 | Operative Report ---
DATE OF PROCEDURE: August 18, 2018 PREOPERATIVE DIAGNOSES 1. Indwelling left ureteral stent. 2. Urethral stricture disease. 3. Left renal calculi. POSTOPERATIVE DIAGNOSES 1. Indwelling left ureteral stent. 2. Urethral stricture disease. 3. Left renal calculi. PROCEDURES 1. Staged shock wave lithotripsy, left side. 2. Cystourethroscopy with removal of left indwelling stent (entirely separate procedure for the left renal stent, staged fashion). 3. Staged cystoscopy with insertion of a left indwelling ureteral stent (entirely separate procedure for the left-sided hydronephrosis). 4. Staged cystoscopy with urethral dilation (entirely separate procedure for urethral stricture disease). 5. Supervision of fluoroscopy. ANESTHESIA: General. ESTIMATED BLOOD LOSS: Minimal. COMPLICATIONS: None. INDICATIONS: Ms. Richmond is a 63-year-old female with a 2.8 cm renal calculi. She and I had a long discussion about alternatives, risks and benefits, including recommendation for same, which therapy she had elected to pursue and noninvasive approach understanding this may take multiple procedures. She voiced understanding of the options, alternatives, risks, and benefits. Also, understands the fact that stent is a temporary indwelling device and must be removed. Failure to do so will lead to encrustation, infection, inflammation, actual loss of kidney, and . She elects to proceed. PROCEDURE IN DETAIL: After informed consent was obtained, the patient was taken to the operative suite, placed on the operating table and underwent general anesthesia by the anesthesia service. The patient was placed in the dorsal lithotomy position for cystoscopy. A 22.5-Hungarian cystoscope was inserted per urethra after dilation. Attempts were made to insert a 22.5-Hungarian cystoscope. This failed. The urethra was calibrated to 14-Hungarian and dilated to 24-Hungarian. The cystoscope was then introduced. Panendoscopy was done. The string from the left ureteral orifice was grasped and removed. The guidewire was inserted. A 2nd stent was placed over this. The lithotripsy machine was then brought into view. Stones were localized in the X, Y and Z planes. Treatment per treatment protocol. The patient tolerated the procedure well and was transported to the recovery room in excellent condition. SUPERVISION OF FLUOROSCOPY: I was present throughout the entire procedure and I supervised the use of fluoroscopy for stent change. There was no radiologist present for treatment. Job#: [id number]
[2018-08-18 09:20] VITALS: BP 141/76
== END | disposition home or self-care (01) ==
LOC: OR 05:29
PROVIDERS: ATTEND Urology
DX: N20.0 Calculus of kidney (principal); Z46.6 Encounter for fitting and adjustment of urinary device; N35.92 Unspecified urethral stricture, female; I10 Essential (primary) hypertension; Z88.0 Allergy status to penicillin; Z01.810 Encounter for preprocedural cardiovascular examination; Z01.812 Encounter for preprocedural laboratory examination
CPT/HCPCS: 36415; 50590; 52332; 74018; 80048; 93005; C1874; J0131; J0696; J1100; J2001; J2250; J2370; J2405; J2704; Q9967

== ENCOUNTER → 2019-01-05 | Day surgery (SDC) | payer OTHER ==
[2019-01-04 10:44] LABS: ANION GAP 10.7 mmol/L (8-16); BLOOD UREA NITROGEN 20 mg/dL (7-26); BUN/CREATININE RATIO 25 (6-25); CALCIUM 9.8 mg/dL (8.4-10.2); CARBON DIOXIDE 26 mmol/L (22-29); CHLORIDE 104 mmol/L (98-107); EST GLOMERULAR FILTRATION RATE > 60 ML/MIN (60-); GLUCOSE 91 mg/dL (74-118); POTASSIUM 3.7 mmol/L (3.5-5.1); SODIUM 137 mmol/L (136-145)
[~2019-01-05] MED LIST changes: -ACETAMINOPHEN 1000 MG/100 ML IV ONE; +ATORVASTATIN CA10 MG PO; -CEFTRIAXONE SOD 1 GM VIAL ONE; +LEVOFLOXACIN 500MG/D5W 100ML 100 ML IV ONE; +LISINOPRIL-HCT1 EAC1 PO; -ONDANSETRON HCL INJ 2 MG/ML VIAL ONE; +ONDANSETRON HCL INJ 2MG/ML 2ML 2 MG/ML VIAL ONE
--- OUTSIDE RECORDS SUMMARY | 2019-01-05 10:44 | XMS REPORT | Continuity of Care Document ---
Author Author [facility] Interface Address Unknown Phone Unavailable Problems Problem Status Onset Date Classification Date Reported Comments Source Escherichia coli<sup>1, 2</sup> Active 06/14/2017 Problem 06/19/2017 Problem added by Discern Expert. [facility] EPIGASTRIC ABDOMINAL PIAN, ACUTE BLOOD L Active 06/14/2017 [facility] DIFFICULTY BREATHING Active 06/14/2017 [facility] Essential hypertension Active Problem 11/13/2018 [id number],Jonathan Beckford Vazquez Abdominal aortic aneurysm without rupture Active Problem 11/13/2018 [id number] Chronic allergic rhinitis, unspecified seasonality, unspecified trigger Active Problem 11/13/2018 [id number] PUD Active Problem 11/13/2018 [id number] Acute left-sided low back pain with left-sided sciatica Active Problem 11/13/2018 [id number] Hypertensive urgency Active Problem 11/13/2018 2.16.840.1.307470.4.391.11.69842 Kidney stone Active Problem 11/13/2018 [id number] Hydronephrosis concurrent with and due to calculi of kidney and ureter Active Problem 11/13/2018 [id number] Encounter for general adult medical examination with abnormal findings Active Diagnosis 02/17/2017 [id number] Body mass index of 23.0 to 23.9 in adult Active Diagnosis 02/17/2017 [id number]..02004 Helicobacter pylori Active Diagnosis 07/08/2017 2.16.840.1.789635.4.391.68 UGI bleed Active Diagnosis 07/08/2017 [id number]..07305 Encounter for annual general medical examination with abnormal findings in adult Active Diagnosis 11/13/2018 2.16.840.1.266807.4.391.68 BMI 24.0-24.9, adult Active Diagnosis 11/13/2018 2.16.840.1.572744.4.391.68 Encounter for screening Active Diagnosis 11/13/2018 2.16.840.1.770586.4.391.68 Carpal tunnel syndrome, left Active Problem 10/14/2016 Jonathan Vazquez Body mass index 22.0-22.9, adult Active Diagnosis 10/14/2016 Jonathan Vazquez Cervicalgia Active Diagnosis 10/14/2016 Jonathan Vazquez Hypertension Resolved Problem 06/19/2017 [facility] Peptic ulcer Resolved Problem 06/19/2017 [facility] EPIGASTRIC PAIN Active [facility] ACUTE POSTHEMORRHAGIC ANEMIA Active [facility] Medications Medication Details Route Status Patient Instructions Ordering Provider Order Date Source Lipitor 1 tablet Orally Active 10 mg Orally Once a day Zhang 11/08/2018 [id number] Lisinopril-Hydrochlorothiazide 1 tablet Orally Active 20-25 MG Orally Once a day Zhang 01/13/2018 2.16.840.1.349993.4.391.68 Ireavpc-Asqnav-Krxcv Pertussis as directed Intramuscular Active 5-2.5-18.5 LF-MCG/0.5 Intramuscular as directed Zhang 01/13/2018 2.16.840.1.017757.4.391.68 Tylenol/Codeine #3 1 tablet as needed Orally Active 300-30 MG Orally every 6 hrs Zhang 12/30/2017 2.16.840.1.924970.4.391. Cipro 1 tablet Orally Active 500 mg Orally Once a day Zhang 12/30/2017 2.16.840.1.613986.4.391.11.14846 Prevacid 1 capsule Orally Active 30 MG Orally twice a day (bid) Zhang 06/30/2017 2.16.840.1.909480.4.391.11.37515 Amoxicillin 2 tablets Orally Active 500 MG Orally every 12 hrs Zhang 06/30/2017 2.16.840.1.491931.4.391.11.58106 Biaxin 1 tablet Orally Active 500 MG Orally every 12 hrs Zhang 06/30/2017 2.16.840.1.509124.4.391.11.08408 Prevacid 1 capsule Orally Active 30 MG Orally twice a day (bid) Zhang 06/30/2017 2.16.840.1.752037.4.391.11.08962 Prevpac as directed Orally Active - Orally as directed Zhang 06/26/2017 2.16.840.1.345306.4.391.11.79448 Flonase 1 spray in each nostril Nasally Active 50 MCG/DOSE Nasally Once a day Zhang 06/26/2017 2.16.840.1.996106.4.391.11.98128 Flonase 1 spray in each nostril Nasally Active 50 MCG/DOSE Nasally Once a day Zhang 06/26/2017 [id number] Claritin 1 tablet Orally Active 10 MG Orally Once a day Zhang 06/26/2017 2.[id number] Ciprofloxacin 500 MG Oral Tablet [Cipro] 500 mg=1 tab, PO, Q12H, X 10 day, # 20 tab, 0 Refill(s), Pharmacy: [facility] [id number] Active 06/16/2017 [facility] Copper Sulfate 0.8 MG / Ferrous fumarate 324 MG / Folic Acid 1 MG / Magnesium Sulfate 6.9 MG / manganese sulfate 1.3 MG / Niacinamide 30 MG / Pantothenic Acid 10 MG / pyridoxine 5 MG / Riboflavin 6 MG / Sodium Ascorbate 200 MG / Thiamine 10 MG / Vitamin B 1 cap, PO, Daily, # 30 cap, 3 Refill(s), Pharmacy: [place] [id number] Active 06/16/2017 [facility] influenza virus vaccine, inactivated 0.5 mL, Route: IM, Drug Form: SUSP, Daily, Start date: 06/15/17 16:00:00 CDT, Duration: 1 doses or times, Stop date: 06/15/17 16:00:00 CDTNotes: (Same as: Fluzone Quadrivalent, Fluarix Quadrivalent) For 3 years of age and older (0.5 mL IM) Shake well before use Inactive 06/15/2017 [facility] Sucralfate 1000 MG Oral Tablet [Carafate] 1 gm=1 tab, PO, QID-Before Meals, # 120 tab, 0 Refill(s), Pharmacy: [place] [id number] Active 06/15/2017 [facility] pantoprazole 40 MG Enteric Coated Tablet [Protonix] 40 mg=1 tab, PO, BID, # 120 tab, 1 Refill(s), Pharmacy: [place] [id number] Active 06/15/2017 [facility] Omnipaque 300 50 ml, Route: PO, Drug Form: SOLN, Dosing Weight 55.483, kg, ONCE, Start date: 06/15/17 11:41:00 CDT, Stop date: 06/15/17 11:41:00 CDTNotes: (Same as:Omnipaque 300). WASTE: F/P - Black; E - [facility] Inactive 06/15/2017 [facility] Levaquin 500 mg, 2 tab, Route: PO, Drug form: TAB, [id number], Dosing Weight 55.483, kg, Start date: 06/15/17 11:00:00 CDT, Duration: 3 day, Stop date: 06/17/17 11:00:00 CDT, ABX Indication: Urinary Tract InfectionNotes: Do not give w/antacids, dairy pdt & minerals Take 1 hr before or 2 hr after dairy pdt (Same as:Levaquin) No Longer Active 06/15/2017 [facility] Sodium Chloride 0.9% IV 1000 mL 1,000 mL, Rate: 25 ml/hr, Infuse over: 40 hr, Route: IV, Dosing Weight 55.483 kg, Total Volume: 1,000, Start date: 06/15/17 10:04:00 CDT, Duration: 30 day, Stop date: 07/15/17 10:03:00 CDT Inactive 06/15/2017 [facility] influenza virus vaccine, inactivated 0.5 mL, Route: IM, Drug Form: SUSP, Daily, Start date: 06/15/17 9:00:00 CDT, Duration: 1 doses or times, Stop date: 06/15/17 9:00:00 CDTNotes: (Same as: Fluzone Quadrivalent, Fluarix Quadrivalent) For 3 years of age and older (0.5 mL IM) Shake well before use Inactive 06/15/2017 [facility] Saline Flush 0.9% 10 ml, Route: IVP, Drug Form: INJ, Dosing Weight 56.818, kg, PRN, PRN Line Flush, Start date: 06/14/17 20:58:00 CDT, Duration: 30 day, Stop date: 07/14/17 20:57:00 CDTNotes: (Same as: BD Posiflush) No Longer Active 06/15/2017 [facility] sodium chloride 0.9% 1000 ml INJ 1,000 mL 1,000 mL, Rate: 125 ml/hr, Infuse over: 8 hr, Route: IV, Dosing Weight 56.818 kg, Total Volume: 1,000, Start date: 06/14/17 20:58:00 CDT, Duration: 30 day, Stop date: 07/14/17 20:57:00 CDT No Longer Active 06/15/2017 [facility] Morphine 2 mg, 1 mL, Route: IVP, Drug form: SOLN, Q4H, Dosing Weight 56.818, kg, PRN Pain Score 7-10, Start date: 06/14/17 20:58:00 CDT, Duration: 30 day, Stop date: 07/14/17 20:57:00 CDT No Longer Active 06/15/2017 [facility] Ondansetron 4 mg, 2 mL, Route: IVP, Drug form: INJ, Q6H, Dosing Weight 56.818, kg, PRN Nausea & Vomiting, Start date: 06/14/17 20:58:00 CDT, Duration: 30 day, Stop date: 07/14/17 20:57:00 CDTNotes: (Same as: Zofran) MEDICATION WASTE Product Size: 4 mg Product Wasted: ___ mg No Longer Active 06/15/2017 [facility] Hydralazine 10 mg, 0.5 mL, Route: IVP, Drug form: INJ, Q4H, Dosing Weight 56.818, kg, PRN Elevated BP, if SBP>150, Start date: 06/14/17 19:16:00 CDT, Duration: 30 day, Stop date: 07/14/17 19:15:00 CDTNotes: (Same as: Apresoline) Push over 5 minutes No Longer Active 06/15/2017 [facility] Benadryl 25 mg, 0.5 mL, Route: IVP, Drug form: INJ, TID, Dosing Weight 56.818, kg, PRN as needed for itching, Start date: 06/14/17 19:16:00 CDT, Duration: 30 day, Stop date: 07/14/17 19:15:00 CDTNotes: (Same as: Benadryl) No Longer Active 06/15/2017 [facility] Simethicone 160 mg, 2 tab, Route: CHEW, Drug form: CHEWTAB, TID, Dosing Weight 56.818, kg, PRN as needed for gas, Start date: 06/14/17 19:16:00 CDT, Duration: 30 day, Stop date: 07/14/17 19:15:00 CDTNotes: (Same as: Mylicon) No Longer Active 06/15/2017 [facility] Tums 1,500 mg, 3 tab, Route: CHEW, Drug form: CHEWTAB, TID, Dosing Weight 56.818, kg, PRN as needed for dyspepsia, Start date: 06/14/17 19:16:00 CDT, Duration: 30 day, Stop date: 07/14/17 19:15:00 CDTNotes: (Same As: Tums) Calcium Carbonate 500 lu=940 mg elemental calcium Dose= mg calcium carbonate ( mg elemental calcium) No Longer Active 06/15/2017 [facility] Morphine 2 mg, 1 mL, Route: IVP, Drug form: SOLN, Q4H, Dosing Weight 56.818, kg, PRN Pain Score 7-10, Start date: 06/14/17 19:16:00 CDT, Duration: 30 day, Stop date: 07/14/17 19:15:00 CDT Inactive 06/15/2017 [facility] Ondansetron 4 mg, 2 mL, Route: IVP, Drug form: INJ, Q6H, Dosing Weight 56.818, kg, PRN Nausea & Vomiting, Start date: 06/14/17 19:16:00 CDT, Duration: 30 day, Stop date: 07/14/17 19:15:00 CDTNotes: (Same as: Luis Antonio) MEDICATION WASTE Product Size: 4 mg Product Wasted: ___ mg Inactive 06/15/2017 [facility] Docusate 100 mg, 1 cap, Route: PO, Drug form: CAP, BID, Dosing Weight 56.818, kg, PRN as needed for constipation, Start date: 06/14/17 19:16:00 CDT, Duration: 30 day, Stop date: 07/14/17 19:15:00 CDTNotes: (Same as: Colace) (Do Not Crush) No Longer Active 06/15/2017 [facility] Acetaminophen 650 mg, 2 tab, Route: PO, Drug form: TAB, Q4H, Dosing Weight 56.818, kg, PRN Pain 1-3/Temp > 100.4 F, Start date: 06/14/17 19:16:00 CDT, Duration: 30 day, Stop date: 07/14/17 19:15:00 CDTNotes: Do not exceed 4 gm/day. (Same as: Tylenol) No Longer Active 06/15/2017 [facility] Acetaminophen 325 MG / Hydrocodone Bitartrate 5 MG Oral Tablet 1 tab, Route: PO, Drug Form: TAB, Dosing Weight 56.818, kg, Q4H, PRN Pain Score 4-6, Start date: 06/14/17 19:16:00 CDT, Duration: 30 day, Stop date: 07/14/17 19:15:00 CDTNotes: (Same as: [place] 325/5) Do not exceed 4gm/day of acetaminophen. No Longer Active 06/15/2017 [facility] Saline Flush 0.9% 10 ml, Route: IVP, Drug Form: INJ, Dosing Weight 56.818, kg, PRN, PRN Line Flush, Start date: 06/14/17 19:15:00 CDT, Duration: 30 day, Stop date: 07/14/17 19:14:00 CDTNotes: (Same as: BD Posiflush) No Longer Active 06/15/2017 [facility] sodium chloride 0.9% 1000 ml INJ 1,000 mL 1,000 mL, Rate: 75 ml/hr, Infuse over: 13.3 hr, Route: IV, Dosing Weight 56.818 kg, Total Volume: 1,000, Start date: 06/14/17 19:15:00 CDT, Duration: 30 day, Stop date: 07/14/17 19:14:00 CDT Inactive 06/15/2017 [facility] Ondansetron 4 mg, 2 mL, Route: IVP, Drug form: INJ, Q4H, Dosing Weight 56.818, kg, PRN Nausea & Vomiting, Start date: 06/14/17 19:15:00 CDT, Duration: 30 day, Stop date: 07/14/17 19:14:00 CDTNotes: (Same as: Zofran) MEDICATION WASTE Product Size: 4 mg Product Wasted: ___ mg Inactive 06/15/2017 [facility] UNKNOWN BP UNKNOWN BP, 30 mg=, PO, Daily, PRN Hypertension, Refill(s) 0 No Longer Active 06/14/2017 [facility] Esomeprazole 20 MG Enteric Coated Capsule [Nexium] 20 mg=1 cap, PO, Daily, 0 Refill(s) No Longer Active 06/14/2017 [facility] pantoprazole 80 mg + sodium chloride 0.9% 100 mL INJ (for IV set) 100 mL 100 mL, Rate: 10 ml/hr, Infuse over: 10 hr, Route: IV, Dosing Weight 56.818 kg, Total Volume: 100, Start date: 06/14/17 17:43:00 CDT, Duration: 72 hr, Stop date: 06/23/17 17:42:00 CDTNotes: infuse at 8 mg/hr (10 ml/hr) for 72 hrs for GI bleed No Longer Active 06/14/2017 [facility] Sodium Chloride 0.9% IV 250 mL + esomeprazole 80 mg 250 mL, Rate: 25 ml/hr, Infuse over: 10 hr, Route: IV, Dosing Weight 56.818 kg, Total Volume: 250, Start date: 06/14/17 17:35:00 CDT, Duration: 72 hr, Stop date: 06/17/17 17:34:00 CDT Inactive 06/14/2017 [facility] sodium chloride 0.9% INJ 250 mL 250 mL, Rate: Dry Sander for use with blood product administration., Dosing Weight 56.818, kg, Route: IV, Total Volume: 250, Priority: Routine, Start Date: 06/14/17 17:26:00 CDT, Duration: 1 day, Stop date: 06/15/17 17:25:00 CDT, Replace Every: 24 hr No Longer Active 06/14/2017 [facility] sodium chloride 0.9% INJ 250 mL 250 mL, Rate: Dry Sander for use with blood product administration., Dosing Weight 56.818, kg, Route: IV, Total Volume: 250, Priority: Routine, Start Date: 06/14/17 16:19:00 CDT, Duration: 1 day, Stop date: 06/15/17 16:18:00 CDT, Replace Every: 24 hr No Longer Active 06/14/2017 [facility] Saline Flush 0.9% 10 mL, Route: IVP, Drug Form: INJ, Dosing Weight 56.818, kg, PRN, PRN Line Flush, Start date: 06/14/17 16:19:00 CDT, Duration: 30 day, Stop date: 07/14/17 16:18:00 CDTNotes: preservative free. No Longer Active 06/14/2017 [facility] Caltrate 600+D 1 tablet with a meal Orally Active 600-800 MG- UNIT Orally twice a day (bid) Zhang 04/17/2017 [id number] Lisinopril-Hydrochlorothiazide 1 tablet Orally Active 10-12.5 MG Orally Once a day Zhang 02/10/2017 2.16.840.1.455636.4.391.11.58400 Lisinopril-Hydrochlorothiazide 1 tablet Orally Active 10-12.5 MG Orally Once a day Zhang 02/10/2017 2.[id number] Meloxicam 1 tablet Orally Active 7.5 MG Orally Once a day [facility] 10/08/2016 Jonathan Vazquez Losartan Potassium-HCTZ 1 tablet Orally Active 100-12.5 MG Orally Once a day [facility] 10/08/2016 Jonathan Vazquez Hemocyte 1 capsule Orally Active 324 (106 Fe) MG Orally daily Zhang [id number]..06390 Hemocyte 1 capsule Orally Active 324 (106 Fe) MG Orally daily Zhang 2.16.840.1.593245.4.391..48854 Lisinopril-Hydrochlorothiazide 1 tablet Orally Active 20-25 MG Orally Once a day Zhang 2.16.840.1.874038.4.391..60399 Allergies, Adverse Reactions, Alerts Substance Category Reaction Severity Reaction type Status Date Reported Comments Source Peniciline Adverse Reaction rash Adverse Reaction Active 10/08/2016 Jonathan Vazquez penicillin Adverse Reaction Info Not Available Adverse Reaction Active 11/05/2018 [id number] Immunizations Immunization Date Given Site Status Last Updated Comments Source influenza virus vaccine, inactivated 06/15/2017 Left deltoid completed [facility] Results Order Name Results Value Reference Range Date Interpretation Comments Source HEMATOLOGY MCHC 33.2 g/dL 32.0 - 36.0 06/16/2017 [facility] HEMATOLOGY MPV 7.3 fL 7.4 - 10.4 06/16/2017 [facility] HEMATOLOGY MCV 75.9 fL 80.0 - 98.0 06/16/2017 [facility] HEMATOLOGY Hgb 8.6 g/dL 12.0 - 16.0 06/16/2017 [facility] HEMATOLOGY RBC 3.43 M/CMM 4.20 - 5.40 06/16/2017 [facility] Platelet 219 K/CMM 133 - 450 06/16/2017 [facility] RDW 20.9 % 11.5 - 14.5 06/16/2017 [facility] Hct 26.0 % 36.0 - 48.0 06/16/2017 [facility] MCH 25.2 pg 27.0 - 31.0 06/16/2017 [facility] HEMATOLOGY WBC 7.4 K/CMM 3.7 - 10.4 06/16/2017 [facility] BLOOD BANK RESULTS RBC product Product available 1 (06/16/17 7:37 AM) 06/16/2017 Result Comment: 06/16/2017 07:57 [id number] notified FLY philip blood is ready for roll picker [facility] CHEM PANEL BUN 20 mg/dL 7 - 22 06/16/2017 [facility] CHEM PANEL Sodium Lvl 144 meq/L 135 - 145 06/16/2017 [facility] CHEM PANEL Creatinine Lvl 0.63 mg/dL 0.50 - 1.40 06/16/2017 [facility] CHEM PANEL Glucose Lvl 87 mg/dL 70 - 99 06/16/2017 [facility] CHEM PANEL AGAP 9.8 meq/L 10.0 - 20.0 06/16/2017 [facility] CHEM PANEL CO2 26 meq/L 24 - 32 06/16/2017 [facility] CHEM PANEL Calcium Lvl 7.8 mg/dL 8.5 - 10.5 06/16/2017 [facility] CHEM PANEL Chloride Lvl 112 meq/L 95 - 109 06/16/2017 [facility] CHEM PANEL Potassium Lvl 3.8 meq/L 3.5 - 5.1 06/16/2017 [facility] CHEM PANEL eGFR 96 mL/min/1.73m2 06/16/2017 Result [...] should be multiplied by the estimated BMI. [facility] HEMATOLOGY Platelet 210 K/CMM 133 - 450 06/16/2017 [facility] HEMATOLOGY MPV 7.6 fL 7.4 - 10.4 06/16/2017 [facility] HEMATOLOGY MCHC 32.4 g/dL 32.0 - 36.0 06/16/2017 [facility] HEMATOLOGY RDW 21.2 % 11.5 - 14.5 06/16/2017 [facility] MCH 23.9 pg 27.0 - 31.0 06/16/2017 [facility] MCV 73.9 fL 80.0 - 98.0 06/16/2017 [facility] WBC 7.3 K/CMM 3.7 - 10.4 06/16/2017 [facility] RBC 3.04 M/CMM 4.20 - 5.40 06/16/2017 [facility] Hct 22.4 % 36.0 - 48.0 06/16/2017 [facility] Hgb 7.3 g/dL 12.0 - 16.0 06/16/2017 [facility] Eosinophils 3.3 % 0.0 - 4.0 06/16/2017 [facility] Basophils 0.6 % 0.0 - 1.0 06/16/2017 [facility] Segs-Bands # 3.9 K/CMM 1.5 - 8.1 06/16/2017 [facility] Lymphocytes # 2.5 K/CMM 1.0 - 5.5 06/16/2017 [facility] Monocytes # 0.6 K/CMM 0.0 - 0.8 06/16/2017 [facility] Microcyte 1+ *ABN* (06/16/17 5:50 AM) None Seen 06/16/2017 [facility] Eosinophils # 0.2 K/CMM 0.0 - 0.5 06/16/2017 [facility] Segs 54.0 % 45.0 - 75.0 06/16/2017 [facility] Lymphocytes 34.2 % 20.0 - 40.0 06/16/2017 [facility] Monocytes 7.9 % 2.0 - 12.0 06/16/2017 [facility] Hct 24.3 % 36.0 - 48.0 06/15/2017 [facility] Hgb 7.9 g/dL 12.0 - 16.0 06/15/2017 [facility] URINE AND STOOL Occult Bld Stl Positive *ABN* (06/15/17 10:01 AM) Negative 06/15/2017 [facility] Abdomen/Pelvis wo IV contrast CT Abdomen/Pelvis wo IV contrast CT Patient Name: VADIM ALVES : 1955; Age: 61 years Female MR: [id number] Study: Abdomen/Pelvis wo IV contrast CT 06/15/2017 [...] additional nonobstructive calculi within both kidneys. SL: [id number] 06/15/2017 - - Read by: Rick Dimas MD Dictated Date/time: 06/15/17 16:07 Electronically Signed by: Rick Dimas MD 06/15/17 16:20 FINAL REPORT [facility] CHEM PANEL Calcium Lvl 8.0 mg/dL 8.5 - 10.5 06/15/2017 [facility] CHEM PANEL Total Protein 5.6 g/dL 6.4 - 8.4 06/15/2017 [facility] CHEM PANEL B/C Ratio 55 6 - 25 06/15/2017 [facility] CHEM PANEL CO2 22 meq/L 24 - 32 06/15/2017 [facility] CHEM PANEL AGAP 11.6 meq/L 10.0 - 20.0 06/15/2017 [facility] CHEM PANEL Albumin Lvl 2.5 g/dL 3.5 - 5.0 06/15/2017 [facility] CHEM PANEL Creatinine Lvl 0.58 mg/dL 0.50 - 1.40 06/15/2017 [facility] CHEM PANEL Sodium Lvl 145 meq/L 135 - 145 06/15/2017 [facility] CHEM PANEL Potassium Lvl 3.6 meq/L 3.5 - 5.1 06/15/2017 [facility] CHEM PANEL Chloride Lvl 115 meq/L 95 - 109 06/15/2017 [facility] CHEM PANEL Alk Phos 65 unit/L 39 - 136 06/15/2017 [facility] CHEM PANEL Bili Total 0.7 mg/dL 0.2 - 1.3 06/15/2017 [facility] CHEM PANEL Globulin 3.1 g/dL 2.7 - 4.2 06/15/2017 [facility] CHEM PANEL A/G Ratio 0.8 0.7 - 1.6 06/15/2017 [facility] CHEM PANEL ALT 16 unit/L 0 - 65 06/15/2017 [facility] CHEM PANEL AST 16 unit/L 0 - 37 06/15/2017 [facility] CHEM PANEL eGFR 99 mL/min/1.73m2 06/15/2017 Result [...] should be multiplied by the estimated BMI. [facility] CHEM PANEL Glucose Lvl 90 mg/dL 70 - 99 06/15/2017 [facility] CHEM PANEL BUN 32 mg/dL 7 - 22 06/15/2017 [facility] CHEM PANEL Magnesium Lvl 2.0 mg/dL 1.8 - 2.4 06/15/2017 [facility] CHEM PANEL Phosphorus 2.5 mg/dL 2.5 - 4.5 06/15/2017 [facility] HEMATOLOGY Microcyte 1+ *ABN* (06/15/17 6:47 AM) None Seen 06/15/2017 [facility] HEMATOLOGY Segs-Bands # 3.9 K/CMM 1.5 - 8.1 06/15/2017 [facility] HEMATOLOGY Lymphocytes # 2.6 K/CMM 1.0 - 5.5 06/15/2017 [facility] HEMATOLOGY Monocytes 7.6 % 2.0 - 12.0 06/15/2017 [facility] HEMATOLOGY Basophils 0.5 % 0.0 - 1.0 06/15/2017 [facility] HEMATOLOGY Eosinophils 1.8 % 0.0 - 4.0 06/15/2017 [facility] HEMATOLOGY Lymphocytes 35.9 % 20.0 - 40.0 06/15/2017 [facility] HEMATOLOGY Eosinophils # 0.1 K/CMM 0.0 - 0.5 06/15/2017 [facility] HEMATOLOGY Monocytes # 0.5 K/CMM 0.0 - 0.8 06/15/2017 [facility] HEMATOLOGY Segs 54.2 % 45.0 - 75.0 06/15/2017 [facility] HEMATOLOGY MPV 7.6 fL 7.4 - 10.4 06/15/2017 [facility] HEMATOLOGY RDW 20.8 % 11.5 - 14.5 06/15/2017 [facility] MCHC 32.9 g/dL 32.0 - 36.0 06/15/2017 [facility] MCH 24.4 pg 27.0 - 31.0 06/15/2017 [facility] HEMATOLOGY MCV 74.3 fL 80.0 - 98.0 06/15/2017 [facility] HEMATOLOGY Platelet 188 K/CMM 133 - 450 06/15/2017 [facility] HEMATOLOGY RBC 3.20 M/CMM 4.20 - 5.40 06/15/2017 [facility] HEMATOLOGY WBC 7.2 K/CMM 3.7 - 10.4 [...] Bacteria Many /HPF None Seen /HPF 06/15/2017 [facility] URINE AND STOOL UA Urobilinogen <=1.0 mg/dL 0.1 - 1.0 06/15/2017 [facility] URINE AND STOOL UA Color Ltyellow 06/15/2017 [facility] URINE AND STOOL UA Bili Negative *NA* (06/14/17 11:13 PM) Negative 06/15/2017 [facility] URINE AND STOOL UA Nitrite Negative (06/14/17 11:13 PM) Negative 06/15/2017 [facility] URINE AND STOOL UA Blood Negative (06/14/17 11:13 PM) Negative 06/15/2017 [facility] URINE AND STOOL UA Turbidity Slight *ABN* (06/14/17 11:13 PM) Clear 06/15/2017 [facility] URINE AND STOOL UA Ketones Negative mg/dL Negative mg/dL 06/15/2017 [facility] URINE AND STOOL UA Glucose Negative mg/dL Negative mg/dL 06/15/2017 [facility] URINE AND STOOL UA Protein Negative mg/dL Negative mg/dL 06/15/2017 [facility] URINE AND STOOL UA pH 6.0 5.0 - 8.0 06/15/2017 [facility] URINE AND STOOL UA Spec Grav 1.013 <=1.030 06/15/2017 [facility] BLOOD BANK RESULTS RBC product Product available 2 (06/14/17 5:26 PM) 06/14/2017 Result Comment: 06/14/2017 18:01 [id number] Called to Parul Nicholas at 06/14/2017 18:01 by Kan Villegas. [facility] BLOOD BANK RESULTS Antibody Scrn Negative (06/14/17 4:49 PM) 06/14/2017 [facility] BLOOD [facility] RESULTS ABO/Rh O POS 06/14/2017 [facility] CARDIAC ENZYMES Troponin-I null 0.00 - 0.40 06/14/2017 [facility] CHEM PANEL A/G Ratio 0.8 0.7 - 1.6 06/14/2017 [facility] CHEM PANEL B/C Ratio 54 6 - 25 06/14/2017 [facility] CHEM PANEL Globulin 3.6 g/dL 2.7 - 4.2 06/14/2017 [facility] CHEM PANEL AGAP 12.1 meq/L 10.0 - 20.0 06/14/2017 [facility] CHEM PANEL eGFR 96 mL/min/1.73m2 06/14/2017 Result [...] should be multiplied by the estimated BMI. [facility] CHEM PANEL Bili Total 0.2 mg/dL 0.2 - 1.3 06/14/2017 [facility] CHEM PANEL Alk Phos 80 unit/L 39 - 136 06/14/2017 [facility] CHEM PANEL Albumin Lvl 2.9 g/dL 3.5 - 5.0 06/14/2017 [facility] CHEM PANEL Calcium Lvl 8.3 mg/dL 8.5 - 10.5 06/14/2017 [facility] CHEM PANEL ALT 23 unit/L 0 - 65 06/14/2017 [facility] CHEM PANEL Total Protein 6.5 g/dL 6.4 - 8.4 06/14/2017 [facility] CHEM PANEL AST 19 unit/L 0 - 37 06/14/2017 [facility] CHEM PANEL Chloride Lvl 111 meq/L 95 - 109 06/14/2017 [facility] CHEM PANEL Sodium Lvl 142 meq/L 135 - 145 06/14/2017 [facility] CHEM PANEL CO2 23 meq/L 24 - 32 06/14/2017 [facility] CHEM PANEL Potassium Lvl 4.1 meq/L 3.5 - 5.1 06/14/2017 [facility] CHEM PANEL BUN 34 mg/dL 7 - 22 06/14/2017 [facility] CHEM PANEL Glucose Lvl 102 mg/dL 70 - 99 06/14/2017 [facility] CHEM PANEL Creatinine Lvl 0.63 mg/dL 0.50 - 1.40 06/14/2017 [facility] HEMATOLOGY Plt Morph Normal (06/14/17 4:49 PM) 06/14/2017 [facility] HEMATOLOGY Segs 69.6 % 45.0 - 75.0 06/14/2017 [facility] HEMATOLOGY Microcyte 2+ *ABN* (06/14/17 4:49 PM) None Seen 06/14/2017 [facility] Basophils # 0.1 K/CMM 0.0 - 0.2 06/14/2017 [facility] HEMATOLOGY Segs-Bands # 6.1 K/CMM 1.5 - 8.1 06/14/2017 [facility] HEMATOLOGY Monocytes # 0.5 K/CMM 0.0 - 0.8 06/14/2017 [facility] HEMATOLOGY Lymphocytes # 2.1 K/CMM 1.0 - 5.5 06/14/2017 [facility] HEMATOLOGY Basophils 0.7 % 0.0 - 1.0 06/14/2017 [facility] HEMATOLOGY Eosinophils 0.5 % 0.0 - 4.0 06/14/2017 [facility] HEMATOLOGY Monocytes 5.5 % 2.0 - 12.0 06/14/2017 [facility] Lymphocytes 23.7 % 20.0 - 40.0 06/14/2017 [facility] PT 12.8 s 12.0 - 14.7 06/14/2017 [facility] INR 0.94 0.85 - 1.17 06/14/2017 [facility] PTT 26.1 s 22.9 - 35.8 06/14/2017 [facility] Vital Signs Vital Sign Value Date Comments Source Weight 124.4 11/05/2018 2.16.840.1.783227.4.391.11.56451 Height 60 11/05/2018 2.16.840.1.746712.4.391.11.51768 Temperature Oral (F) 96.6 F 11/05/2018 2.16.840.1.733101.4.391.11.06119 Heart Rate 73 11/05/2018 2.16.840.1.970071.4.391.11.14828 Diastolic (mm Hg) 90 11/05/2018 2.16.840.1.029759.4.391.11.44966 Systolic (mm Hg) 136 11/05/2018 2.16.840.1.989174.4.391.11.35021 Weight 123.3 05/14/2018 2.16.840.1.138919.4.391.11.46379 Height 60 05/14/2018 2.16.840.1.269859.4.391.11.17900 Temperature Oral (F) 97.9 F 05/14/2018 2.16.840.1.447868.4.391.11.02214 Heart Rate 75 05/14/2018 2.16.840.1.613636.4.391.11.46352 Diastolic (mm Hg) 75 05/14/2018 2.16.840.1.304817.4.391.11.45435 Systolic (mm Hg) 131 05/14/2018 2.16.840.1.990706.4.391.11.16623 Weight 123.6 01/13/2018 2.16.840.1.965453.4.391.11.78258 Height 60.0 01/13/2018 2.16.840.1.444228.4.391.11.98593 Temperature Oral (F) 98.4 F 01/13/2018 2.16.840.1.128585.4.391.11.81297 Heart Rate 73 01/13/2018 2.16.840.1.607296.4.391.11.48941 Diastolic (mm Hg) 80 01/13/2018 2.16.840.1.948347.4.391.11.95021 Systolic (mm Hg) 145 01/13/2018 2.16.840.1.893967.4.391.11.89144 Weight 123.8 12/30/2017 2.16.840.1.039020.4.391.11.68882 Height 60.0 12/30/2017 2.16.840.1.656720.4.391.11.99042 Temperature Oral (F) 98.4 F 12/30/2017 2.16.840.1.503638.4.391.11.24067 Heart Rate 74 12/30/2017 2.16.840.1.285397.4.391.11.29312 Diastolic (mm Hg) 100 12/30/2017 2.16.840.1.252289.4.391.11.36354 Systolic (mm Hg) 190 12/30/2017 2.16.840.1.028210.4.391.11.62847 Weight 119.6 06/26/2017 2.16.840.1.397834.4.391.11.16218 Height 60.0 06/26/2017 2.16.840.1.893801.4.391.11.90153 Temperature Oral (F) 98.3 F 06/26/2017 2.16.840.1.620360.4.391.11.58191 Heart Rate 76 06/26/2017 2.16.840.1.557866.4.391.11.59336 Diastolic (mm Hg) 109 06/26/2017 2.16.840.1.494327.4.391.11.88910 Systolic (mm Hg) 190 06/26/2017 2.16.840.1.716954.4.391.11.34814 Systolic (mm Hg) 147 06/16/2017 [facility] Diastolic (mm Hg) 82 06/16/2017 [facility] Temperature Oral (F) 98.4 F 06/16/2017 [facility] Heart Rate 83 06/16/2017 [facility] Respitory Rate 16 06/16/2017 [facility] Systolic (mm Hg) 157 06/16/2017 [facility] Diastolic (mm Hg) 87 06/16/2017 [facility] Respitory Rate 18 06/16/2017 [facility] Temperature Oral (F) 97.8 F 06/16/2017 [facility] Heart Rate 78 06/16/2017 [facility] Heart Rate 76 06/16/2017 [facility] Temperature Oral (F) 98.1 F 06/16/2017 [facility] Respitory Rate 18 06/16/2017 [facility] Systolic (mm Hg) 134 06/16/2017 [facility] Diastolic (mm Hg) 78 06/16/2017 [facility] Height 157.48 cm 06/15/2017 [facility] Weight 55.483 06/15/2017 [facility] BMI Calculated 22.37 06/15/2017 [facility] Weight 56.818 06/14/2017 [facility] BMI Calculated 22.91 06/14/2017 [facility] Height 157.48 cm 06/14/2017 [facility] Weight 120.7 02/10/2017 2.16.840.1.227661.4.391.11.06845 Height 60.0 02/10/2017 2.16.840.1.872386.4.391.11.02289 Temperature Oral (F) 98.0 F 02/10/2017 2.16.840.1.070566.4.391.11.48168 Heart Rate 80 02/10/2017 2.16.840.1.040009.4.391.11.08887 Diastolic (mm Hg) 94 02/10/2017 2.16.840.1.376751.4.391.11.46085 Systolic (mm Hg) 169 02/10/2017 2.16.840.1.297430.4.391.11.01256 Weight 118.2 10/08/2016 Jonathan Vazquez Height 60 10/08/2016 Jonathan Vazquez Heart Rate 75 10/08/2016 Jonathan Vazquez Diastolic (mm Hg) 91 10/08/2016 Jonathan Vazquez Systolic (mm Hg) 169 10/08/2016 Jonathan Vazquez Encounters Location Location Details Encounter Type Encounter Number Reason For Visit Attending Provider ADM Date DC Date Status Source Jonathan Vazquez MD PA Consult [id number] 10/08/2016 10/08/2016 Jonathan Vazquez [facility] Inpatient [id number] Denzel Holcomb 06/14/2017 06/16/2017 [facility] Procedures Procedure Code Date Perfomer Comments Source Gallbladder stone removal [id number] [facility]
--- OUTSIDE RECORDS SUMMARY | 2019-01-05 10:44 | XMS REPORT ---
Author Author Denzel Holcomb Organization [employer] Address Unknown Phone Unavailable Care Team Providers Care Director Patient Financial Services Name Role Phone Denzel Holcomb CP Unavailable Allergies No Known Allergies Problems Problem Type Condition Code Onset Dates Condition Status Problem Essential (primary) hypertension I10 Active Problem Kidney stone N20.0 Active Problem [...] Instructions Start Date End Date Status Dosage Lipitor [facility] [id number] 10 mg Orally Once a day Nov 08, 2018 Active 1 tablet Results No Known Results Summary Purpose [employer] Submission
--- OUTSIDE RECORDS SUMMARY | 2019-01-05 10:44 | XMS REPORT ---
Author Author Denzel Holcomb [facility] [employer] Address Unknown Phone Unavailable Care Team Providers Care Spike Machine Operator Name Role Phone Denzel Holcomb Unavailable Allergies, Adverse Reactions, Alerts Substance Reaction Event Type penicillin Info Not Available Drug Allergy Problems Problem Type Condition Code Onset Dates Condition Status Assessment Encounter for annual general medical examination with abnormal findings in adult Z00.01 Active Problem Essential (primary) hypertension I10 Active [...] unspecified seasonality, unspecified trigger J30.9 Active Assessment Chronic allergic rhinitis, unspecified seasonality, unspecified trigger J30.9 Active Assessment PUD (peptic ulcer disease) K27.9 Active Assessment BMI 24.0-24.9, adult Z68.24 Active Assessment Essential (primary) hypertension I10 Active Assessment Kidney stone N20.0 Active Assessment Encounter for screening Z13.9 Active Medications Medication Code System Code Instructions Start Date End Date Status Dosage Lisinopril-Hydrochlorothiazide [facility] [place] 74418339715 20-25 MG Orally Once a day Active 1 tablet Flonase [facility] [place] [address]-36 50 MCG/DOSE Nasally Once a day Jun 26, 2017 Active 1 spray in each nostril Lisinopril-Hydrochlorothiazide [facility] [place] 92106656860 10-12.5 MG Orally Once a day February 10, 2017 Active 1 tablet Prevacid [facility] [place] 06566284310 30 MG Orally twice a day (bid) Jun 30, 2017 Active 1 capsule Vital Signs Date/Time: Nov 05, 2018 BMI 24.29 Index Weight 124.4 lbs Height 60 in Temperature 96.6 F Cardiac Monitoring Heart Rate 73 /min Blood Pressure Diastolic 90 mm Hg Blood Pressure Systolic 136 mm Hg Results No Known Results Summary Purpose [employer] Submission
[2019-01-05 14:30] VITALS: BP 123/78
--- NOTE | 2019-01-06 14:36 | Operative Report ---
DATE OF PROCEDURE: 01/05/2019 SURGEON: Kadeem Delarosa MD PREOPERATIVE DIAGNOSES: 1. Indwelling left ureteral stent. 2. Left ureteral calculus. POSTOPERATIVE DIAGNOSES: 1. Indwelling left ureteral stent. 2. Left ureteral calculus. PROCEDURES: 1. Cystoscopy with complicated removal of the left indwelling stent in a staged fashion (entirely separate procedure for removal of the patient's left ureteral stent). 2. Left-sided ureteroscopy with laser lithotripsy in a staged fashion (entirely separate procedure for ridding the patient of very large obstructing partial staghorn calculi). 3. Cystourethroscopy with insertion of left indwelling stent (staged fashion for hydronephrosis). 4. Supervision of fluoroscopy for ureteroscopic portion and stent removal portion. 5. Interpretation of antegrade pyelography. ANESTHESIA: General. ESTIMATED BLOOD LOSS: Minimal. COMPLICATIONS: None. INDICATIONS: Ms. Richmond is a very pleasant 63-year-old with a very large renal calculi, now presenting for cleanup. She and I had a long discussion regarding the alternatives, risks, and benefits including doing nothing, stent removal, ureteroscopy, percutaneous surgery or open surgery. She voiced understanding of the options, alternatives, the risks, and the benefits and she elected to proceed. PROCEDURE IN DETAIL: After informed consent was obtained, the patient was taken to operative suite, placed supine on the operating table. She underwent general anesthesia by the anesthesia service. She was placed in dorsal lithotomy position and sterilely prepped and draped in standard fashion for cystoscopy. A 21-Arabic cystoscope was inserted per urethra and normal urethra was noted. Encrusted stent was grasped. A guidewire was inserted alongside the stent and was seen to coil at the level of the renal pelvis on fluoroscopy. The stent was removed. image #1 shows calcification on the stent in the upper right hand corner of the picture. A rigid ureteroscope was advanced. There was a small cystic lesion seen in the mid ureter. Multiple ureteral stones were seen. Utilizing the 365 micron laser fiber, these were dusted into fragments The ureteroscope was advanced to the level of the renal pelvis. Utilizing a 365 micron laser fiber, again the larger stone was broken into multiple small fragments. Retrograde pyelogram was performed of the stone revealing 3-4 mm fragments. Ureteral stent was then deployed with coil in the renal pelvis and coil in the bladder. The string was tied at the level of the meatus. Bladder was drained and the patient was awakened from anesthesia and transferred to recovery room in excellent condition. Supervision of fluoroscopy. I was present for the entire procedure and supervised fluoroscopy as no radiologist was present. Attention was turned to the left ureter, which was catheterized with a ureteroscope. Retrograde pyelogram revealed a dilated collecting system and exchange of the stent. The previously seen 2 x 2.2 cm partial staghorn calculi and ureteral calculi had been broken into fragments small 3-4 mm. MD KATHY Caceres/MODL /[id number] MTDD
== END | disposition home or self-care (01) ==
LOC: OR 10:40
PROVIDERS: ATTEND Urology
DX: N20.1 Calculus of ureter (principal); Z46.6 Encounter for fitting and adjustment of urinary device; N28.89 Other specified disorders of kidney and ureter; E78.5 Hyperlipidemia, unspecified; R03.0 Elevated blood-pressure reading, without diagnosis of hypertension; Z88.0 Allergy status to penicillin; Z01.810 Encounter for preprocedural cardiovascular examination; Z01.812 Encounter for preprocedural laboratory examination
CPT/HCPCS: 36415; 52356; 74420; 80048; 93005; C1758; C2617; J1100; J1956; J2001; J2250; J2370; J2405; J2704; Q9967